=== PATIENT | female | born 1955 | race Caucasian/White ===

== ENCOUNTER → 2016-11-11 | Outpatient (CLI) | payer BC ==
--- NOTE | 2016-11-11 20:08 | Diagnostic Imaging Report ---
Left breast diagnostic mammogram. The current study was also evaluated with a Computer Aided Detection (CAD) system. COMPARISON: 03/30/2016. FINDINGS: The previously seen calcifications along the far posterior aspect of the left MLO view below the nipple line are again noted and appear slightly more prominent. It appears that these calcifications have somewhat confluent coarse appearance at this time which is in favor of benign etiology. Heterogeneously dense parenchyma elsewhere demonstrates no definite change. IMPRESSION: Increased prominence of the calcifications along the far posterior aspect of the left MLO view which appear slightly confluent and coarse and are favored to be benign. Continued follow-up with another six-month mammogram when the patient is due for her bilateral exam is recommended. ACR BI-RADS Category 3: Probably benign findings. Result letter will be mailed to the patient. Note: At least 10% of breast cancer is not imaged by mammography. Dictated by: Dictated on workstation # [id number]
== END ==
LOC: RAD 08:21
PROVIDERS: ATTEND Family Medicine
DX: R92.8 Other abnormal and inconclusive findings on diagnostic imaging of breast (principal)

== ENCOUNTER → 2017-05-02 | Outpatient (CLI) | payer BC ==
--- NOTE | 2017-05-02 09:50 | Diagnostic Imaging Report ---
Bilateral diagnostic mammogram with tomography. CAD is utilized. COMPARISON: 11/11/2016. INDICATION: Followup calcifications in the left breast. FINDINGS: The breasts are composed of scattered fibroglandular densities. Calcifications in the far posterior aspect of the left MLO projection are again noted and demonstrate slight heterogeneity. They are slightly increased from previous exam. They are not defined on the CC projection and appear to be closer to the lateral aspect based on the tomographic views. No definite associated mass. There are stable findings seen in the right breast. IMPRESSION: Slightly increased indeterminate calcifications in the far posterior aspect of the left breast seen only on the left MLO view. Stereotactic biopsy is recommended. ACR BI-RADS Category 4A: Low suspicion of malignancy. Result letter will be mailed to the patient. Note: At least 10% of breast cancer is not imaged by mammography. Report was stat faxed to office of SUNITA Yepez, @ 9:47 AM/keith. Dictated by: Dictated on workstation # [id number]
== END ==
LOC: RAD 08:20
PROVIDERS: ATTEND Nurse Practitioner Family
DX: R92.1 Mammographic calcification found on diagnostic imaging of breast (principal)
CPT/HCPCS: 77066

== ENCOUNTER 2017-11-16 21:02 | Outpatient (CLI) | payer BC | END 2017-11-17 06:05 | disposition home or self-care (01) | LOC: SLEEP 21:02 | PROVIDERS: ATTEND Internal Medicine Cardiovascular Disease | DX: G47.33 Obstructive sleep apnea (adult) (pediatric) (principal) | CPT/HCPCS: 95811 ==

== ENCOUNTER → 2017-12-02 | Outpatient (CLI) | payer BC ==
[~2017-12-02] MED LIST: BACL10TA PO; BUDE10.22 INH; CHOL5000 PO; CYAN10006 PO; CYAN25006 SL; FLUT9.9S NS; HYDR25TA4 PO; L.AC1CAP6 PO; LEVO150T6 PO; LORA10TA7 PO; MAGN400T39 PO; MONT10TA24 PO; MULT-35 PO; OMEG-154 PO; PANT40TA3 PO; PITA2TAB2 PO; PREG50CA2 PO; TOPI50TA13 PO
== END ==
LOC: CARD 10:03
PROVIDERS: ATTEND Internal Medicine Cardiovascular Disease
DX: I25.10 Atherosclerotic heart disease of native coronary artery without angina pectoris (principal); I34.0 Nonrheumatic mitral (valve) insufficiency; I07.1 Rheumatic tricuspid insufficiency; Z72.0 Tobacco use; E66.01 Morbid (severe) obesity due to excess calories
CPT/HCPCS: 93306

== ENCOUNTER 2017-12-21 03:55 | Observation (INO) | payer BC ==
[~2017-12-21] VITALS: Ht 162.6 cm; Wt 124.3 kg
[2017-12-21] VITALS (23 sets, daily range): BP systolic 119–158; BP diastolic 72–91
--- OUTSIDE RECORDS SUMMARY | 2017-12-21 04:01 | XMS REPORT | Continuity of Care Document ---
Author Author [facility] Organization [facility] Address Unknown Phone Unavailable Allergies Active Description Code Type Severity Reaction Onset Reported/Identified Relationship to Patient Clinical Status Yes aspirin [id number] Drug Allergy Unknown N/A 08/27/2015 Medications There is no data. Problems Date Dx Coded Attending Type Code Diagnosis Diagnosed By 06/02/1419 FAVIO ERICKSON Ot A09 INFECTIOUS GASTROENTERITIS AND COLITIS, 06/18/2014 HEIDE PAT, KARMEN Malave Ot V43.65 06/18/2014 HEIDE PAT, KARMEN Malave Ot V54.81 06/18/2014 HEIDE PAT, KARMEN Malave Ot V58.61 01/06/2015 HEIDE PAT, KARMEN Malave Ot V58.61 01/06/2015 HEIDE PAT, KARMEN Malave Ot V58.83 01/06/2015 HEIDE PAT, KARMEN Malave Ot V58.61 01/06/2015 HEIDE PAT, KARMEN Malave Ot V58.83 01/06/2015 HEIDE PAT, KARMEN Malave Ot V43.65 01/06/2015 HEIDE PAT, KARMEN Malave Ot V54.81 01/06/2015 HEIDE PAT, KARMEN Malave Ot V58.61 01/23/2015 DANIEL PAT, ERIS Ball Ot V76.12 09/11/2015 FAVIO ERICKSON Ot R06.00 09/11/2015 FAVIO ERICKSON PSYCHIATRIC SOCIAL WORKER SUPERVISOR Ot R07.9 09/11/2015 FAVIO ERICKSONP Ot Z82.49 03/30/2016 KARMEN JAEGER MD Ot V58.61 ANTICOAGULANTS,LT,CURRENT USE 03/30/2016 KARMEN JAEGER MD Ot V58.83 ENCOUNTER FOR THERAPEUTIC DRUG MONITORIN 03/30/2016 KARMEN JAEGER MD Ot V58.61 ANTICOAGULANTS,LT,CURRENT USE 03/30/2016 KARMEN JAEGER MD Ot V58.83 ENCOUNTER FOR THERAPEUTIC DRUG MONITORIN 03/30/2016 KARMEN JAEGER MD Ot V43.65 KNEE JOINT REPLACEMENT STATUS 03/30/2016 KARMEN JAEGER MD Ot V54.81 AFTERCARE FOLLOWING JOINT REPLACEMENT 03/30/2016 KARMEN JAEGER MD Ot V58.61 ANTICOAGULANTS,LT,CURRENT USE 03/30/2016 ERIS SANCHEZ MD, Ot V76.12 OTH SCREEN MAMMO-MALIGN NEOPLASM OF [place] 03/30/2016 FAVIO ERICKSON PSYCHIATRIC SOCIAL WORKER SUPERVISOR Ot R06.00 DYSPNEA, UNSPECIFIED 03/30/2016 FAVIO ERICKSON PSYCHIATRIC SOCIAL WORKER SUPERVISOR Ot R07.9 CHEST PAIN, UNSPECIFIED 03/30/2016 FAVIO ERICKSON PSYCHIATRIC SOCIAL WORKER SUPERVISOR Ot Z82.49 FAMILY HX OF ISCHEM HEART DIS AND OTH DI 03/31/2016 FAVIO ERICKSON PSYCHIATRIC SOCIAL WORKER SUPERVISOR Ot Z12.31 ENCNTR SCREEN MAMMOGRAM FOR MALIGNANT NE 04/01/2016 FAVIO ERICKSON PSYCHIATRIC SOCIAL WORKER SUPERVISOR Ot R19.7 DIARRHEA, UNSPECIFIED 04/05/2016 FAVIO ERICKSON PSYCHIATRIC SOCIAL WORKER SUPERVISOR Ot Z12.31 ENCNTR SCREEN MAMMOGRAM FOR MALIGNANT NE 04/14/2016 FAVIO ERICKSON PSYCHIATRIC SOCIAL WORKER SUPERVISOR Ot R92.2 INCONCLUSIVE MAMMOGRAM 04/14/2016 FAVIO ERICKSON PSYCHIATRIC SOCIAL WORKER SUPERVISOR Ot R92.8 OTH ABN AND INCONCLUSIVE FINDINGS ON DX 04/14/2016 FAVIO ERICKSON PSYCHIATRIC SOCIAL WORKER SUPERVISOR Ot Z12.31 ENCNTR SCREEN MAMMOGRAM FOR MALIGNANT NE 04/14/2016 FAVIO ERICKSON PSYCHIATRIC SOCIAL WORKER SUPERVISOR Ot R19.7 DIARRHEA, UNSPECIFIED 04/21/2016 FAVIO ERICKSON PSYCHIATRIC SOCIAL WORKER SUPERVISOR Ot R92.2 INCONCLUSIVE MAMMOGRAM 04/21/2016 FAVIO ERICKSON PSYCHIATRIC SOCIAL WORKER SUPERVISOR Ot R92.8 OTH ABN AND INCONCLUSIVE FINDINGS ON DX 04/21/2016 KARMEN JAEGER MD Ot V58.61 ANTICOAGULANTS,LT,CURRENT USE 04/21/2016 KARMEN JAEGER MD Ot V58.83 ENCOUNTER FOR THERAPEUTIC DRUG MONITORIN 04/21/2016 KARMEN JAEGER MD Ot V58.61 ANTICOAGULANTS,LT,CURRENT USE 04/21/2016 KARMEN JAEGER MD Ot V58.83 ENCOUNTER FOR THERAPEUTIC DRUG MONITORIN 04/21/2016 KARMEN JAEGER MD Ot V43.65 KNEE JOINT REPLACEMENT STATUS 04/21/2016 KARMEN JAEGER MD Ot V54.81 AFTERCARE FOLLOWING JOINT REPLACEMENT 04/21/2016 KARMEN JAEGER MD Ot V58.61 ANTICOAGULANTS,LT,CURRENT USE 04/21/2016 ERIS SANCHEZ MD Ot V76.12 OTH SCREEN MAMMO-MALIGN NEOPLASM OF [place] 04/21/2016 FAVIO ERICKSON PSYCHIATRIC SOCIAL WORKER SUPERVISOR Ot R06.00 DYSPNEA, UNSPECIFIED 04/21/2016 FAVIO ERICKSON PSYCHIATRIC SOCIAL WORKER SUPERVISOR Ot R07.9 CHEST PAIN, UNSPECIFIED 04/21/2016 FAVIO ERICKSON PSYCHIATRIC SOCIAL WORKER SUPERVISOR Ot Z82.49 FAMILY HX OF ISCHEM HEART DIS AND OTH DI 04/21/2016 FAVIO ERICKSON PSYCHIATRIC SOCIAL WORKER SUPERVISOR Ot Z12.31 ENCNTR SCREEN MAMMOGRAM FOR MALIGNANT NE 04/21/2016 FAVIO ERICKSON PSYCHIATRIC SOCIAL WORKER SUPERVISOR Ot R19.7 DIARRHEA, UNSPECIFIED 04/21/2016 FAVIO ERICKSON PSYCHIATRIC SOCIAL WORKER SUPERVISOR Ot R92.2 INCONCLUSIVE MAMMOGRAM 04/21/2016 FAVIO ERICKSON PSYCHIATRIC SOCIAL WORKER SUPERVISOR Ot R92.8 OTH ABN AND INCONCLUSIVE FINDINGS ON DX 04/21/2016 FAVIO ERICKSON PSYCHIATRIC SOCIAL WORKER SUPERVISOR Ot A09 INFECTIOUS GASTROENTERITIS AND COLITIS, 04/22/2016 HEIDE PAT, KARMEN Malave Ot V58.61 ANTICOAGULANTS,LT,CURRENT USE 04/22/2016 KARMEN JAEGER MD Ot V58.83 ENCOUNTER FOR THERAPEUTIC DRUG MONITORIN 04/22/2016 KARMEN JAEGRE MD Ot V58.61 ANTICOAGULANTS,LT,CURRENT USE 04/22/2016 KARMEN JAEGER MD T Ot V58.83 ENCOUNTER FOR THERAPEUTIC DRUG MONITORIN 04/22/2016 KARMEN JAEGER MD Ot V43.65 KNEE JOINT REPLACEMENT STATUS 04/22/2016 KARMEN JAEGER MD Ot V54.81 AFTERCARE FOLLOWING JOINT REPLACEMENT 04/22/2016 KARMEN JAEGER MD Ot V58.61 ANTICOAGULANTS,LT,CURRENT USE 04/22/2016 DANIEL PAT, ERIS Ball Ot V76.12 OTH SCREEN MAMMO-MALIGN NEOPLASM OF [place] 04/22/2016 FAVIO ERICKSON PSYCHIATRIC SOCIAL WORKER SUPERVISOR Ot R06.00 DYSPNEA, UNSPECIFIED 04/22/2016 FAVIO ERICKSON PSYCHIATRIC SOCIAL WORKER SUPERVISOR Ot R07.9 CHEST PAIN, UNSPECIFIED 04/22/2016 FAVIO ERICKSON PSYCHIATRIC SOCIAL WORKER SUPERVISOR Ot Z82.49 FAMILY HX OF ISCHEM HEART DIS AND OTH DI 04/22/2016 FAVIO ERICKSON PSYCHIATRIC SOCIAL WORKER SUPERVISOR Ot Z12.31 ENCNTR SCREEN MAMMOGRAM FOR MALIGNANT NE 04/22/2016 FAVIO ERICKSON PSYCHIATRIC SOCIAL WORKER SUPERVISOR Ot R19.7 DIARRHEA, UNSPECIFIED 04/22/2016 FAVIO ERICKSON PSYCHIATRIC SOCIAL WORKER SUPERVISOR Ot R92.2 INCONCLUSIVE MAMMOGRAM 04/22/2016 FAVIO ERICKSONP Ot R92.8 OTH ABN AND INCONCLUSIVE FINDINGS ON DX 04/22/2016 FAVIO ERICKSON PSYCHIATRIC SOCIAL WORKER SUPERVISOR Ot A09 INFECTIOUS GASTROENTERITIS AND COLITIS, 04/22/2016 FAVIO ERICKSON PSYCHIATRIC SOCIAL WORKER SUPERVISOR Ot A09 INFECTIOUS GASTROENTERITIS AND COLITIS, 04/22/2016 FAVIO ERICKSONP Ot R19.7 DIARRHEA, UNSPECIFIED 04/22/2016 FAVIO ERICKSON PSYCHIATRIC SOCIAL WORKER SUPERVISOR Ot A09 INFECTIOUS GASTROENTERITIS AND COLITIS, 11/17/2016 AV PAT, LLOYD Sol Ot R92.8 OTH ABN AND INCONCLUSIVE FINDINGS ON DX 11/29/2016 AV PAT, LLOYD Sol Ot R92.8 OTH ABN AND INCONCLUSIVE FINDINGS ON DX 05/11/2017 HEIDE PAT, KARMEN Malave Ot V58.61 ANTICOAGULANTS,LT,CURRENT USE 05/11/2017 KARMEN JAEGER MD Ot V58.83 ENCOUNTER FOR THERAPEUTIC DRUG MONITORIN 05/11/2017 KARMEN JAEGER MD Ot V58.61 ANTICOAGULANTS,LT,CURRENT USE 05/11/2017 KARMEN JAEGER MD Ot V58.83 ENCOUNTER FOR THERAPEUTIC DRUG MONITORIN 05/11/2017 KARMEN JAEGER MD Ot V43.65 KNEE JOINT REPLACEMENT STATUS 05/11/2017 KARMEN JAEGER MD Ot V54.81 AFTERCARE FOLLOWING JOINT REPLACEMENT 05/11/2017 KARMEN JAEGER MD Ot V58.61 ANTICOAGULANTS,LT,CURRENT USE 05/11/2017 DANIEL PAT, ERIS Ball Ot V76.12 OTH SCREEN MAMMO-MALIGN NEOPLASM OF [place] 05/11/2017 FAVIO ERICKSON PSYCHIATRIC SOCIAL WORKER SUPERVISOR Ot R06.00 DYSPNEA, UNSPECIFIED 05/11/2017 FAVIO ERICKSON PSYCHIATRIC SOCIAL WORKER SUPERVISOR Ot R07.9 CHEST PAIN, UNSPECIFIED 05/11/2017 FAVIO ERICKSON PSYCHIATRIC SOCIAL WORKER SUPERVISOR Ot Z82.49 FAMILY HX OF ISCHEM HEART DIS AND OTH DI 05/11/2017 FAVIO ERICKSON PSYCHIATRIC SOCIAL WORKER SUPERVISOR Ot Z12.31 ENCNTR SCREEN MAMMOGRAM FOR MALIGNANT NE 05/11/2017 FAVIO ERICKSON PSYCHIATRIC SOCIAL WORKER SUPERVISOR Ot R92.2 INCONCLUSIVE MAMMOGRAM 05/11/2017 FAVIO ERICKSON Ot R92.8 OTH ABN AND INCONCLUSIVE FINDINGS ON DX 05/11/2017 AV PAT, LLOYD Sol Ot R92.8 OTH ABN AND INCONCLUSIVE FINDINGS ON DX 05/11/2017 FAVIO ERICKSON PSYCHIATRIC SOCIAL WORKER SUPERVISOR Ot R92.1 MAMMOGRAPHIC CALCIFCN FOUND ON DIAGNOSTI 05/11/2017 FAVIO ERICKSON PSYCHIATRIC SOCIAL WORKER SUPERVISOR Ot R92.1 MAMMOGRAPHIC CALCIFCN FOUND ON DIAGNOSTI 05/12/2017 FAVIO ERICKSON PSYCHIATRIC SOCIAL WORKER SUPERVISOR Ot R92.1 MAMMOGRAPHIC CALCIFCN FOUND ON DIAGNOSTI 05/25/2017 FAVIO ERICKSON PSYCHIATRIC SOCIAL WORKER SUPERVISOR Ot R92.1 MAMMOGRAPHIC CALCIFCN FOUND ON DIAGNOSTI 05/25/2017 FAVIO ERICKSON PSYCHIATRIC SOCIAL WORKER SUPERVISOR Ot R92.1 MAMMOGRAPHIC CALCIFCN FOUND ON DIAGNOSTI 11/09/2017 HEIDE PAT, KARMEN Malave Ot V58.61 ANTICOAGULANTS,LT,CURRENT USE 11/09/2017 KARMEN JAEGER MD Ot V58.83 ENCOUNTER FOR THERAPEUTIC DRUG MONITORIN 11/09/2017 KRAMEN JAEGER MD Ot V58.61 ANTICOAGULANTS,LT,CURRENT USE 11/09/2017 KARMEN JAEGER MD Ot V58.83 ENCOUNTER FOR THERAPEUTIC DRUG MONITORIN 11/09/2017 KARMEN JAEGER MD Ot V43.65 KNEE JOINT REPLACEMENT STATUS 11/09/2017 HEIDE PAT, KARMEN Malave Ot V54.81 AFTERCARE FOLLOWING JOINT REPLACEMENT 11/09/2017 HEIDE PAT, KARMEN Malave Ot V58.61 ANTICOAGULANTS,LT,CURRENT USE 11/09/2017 DANIEL PAT, ERIS Ball Ot V76.12 OTH SCREEN MAMMO-MALIGN NEOPLASM OF [place]KH[place] 11/09/2017 FAVIO ERICKSON PSYCHIATRIC SOCIAL WORKER SUPERVISOR Ot R06.00 DYSPNEA, UNSPECIFIED 11/09/2017 FAVIO ERICKSON PSYCHIATRIC SOCIAL WORKER SUPERVISOR Ot R07.9 CHEST PAIN, UNSPECIFIED 11/09/2017 FAVIO ERICKSON PSYCHIATRIC SOCIAL WORKER SUPERVISOR Ot Z82.49 FAMILY HX OF ISCHEM HEART DIS AND OTH DI 11/09/2017 FAVIO ERICKSON PSYCHIATRIC SOCIAL WORKER SUPERVISOR Ot Z12.31 ENCNTR SCREEN MAMMOGRAM FOR MALIGNANT NE 11/09/2017 FAVIO ERICKSON PSYCHIATRIC SOCIAL WORKER SUPERVISOR Ot R92.2 INCONCLUSIVE MAMMOGRAM 11/09/2017 FAVIO ERICKSON PSYCHIATRIC SOCIAL WORKER SUPERVISOR Ot R92.8 OTH ABN AND INCONCLUSIVE FINDINGS ON DX 11/09/2017 AV PAT, LLOYD Sol Ot R92.8 OTH ABN AND INCONCLUSIVE FINDINGS ON DX 11/09/2017 FAVIO ERICKSON PSYCHIATRIC SOCIAL WORKER SUPERVISOR Ot R92.1 MAMMOGRAPHIC CALCIFCN FOUND ON DIAGNOSTI 11/09/2017 FAVIO ERICKSON PSYCHIATRIC SOCIAL WORKER SUPERVISOR Ot R92.1 MAMMOGRAPHIC CALCIFCN FOUND ON DIAGNOSTI 11/14/2017 FAVIO ERICKSON PSYCHIATRIC SOCIAL WORKER SUPERVISOR Ot E04.2 NONTOXIC MULTINODULAR GOITER 11/14/2017 FAVIO ERICKSON SUNITA Ot Z53.9 PROCEDURE AND TREATMENT NOT CARRIED OUT, 11/17/2017 JAZMÍN NG MD Ot G47.33 OBSTRUCTIVE SLEEP APNEA (ADULT) (PEDIATR 11/17/2017 JAZMÍN NG MD, Ot G47.33 OBSTRUCTIVE SLEEP APNEA (ADULT) (PEDIATR 12/05/2017 JAZMÍN NG MD Ot E66.01 MORBID (SEVERE) OBESITY DUE TO EXCESS CA 12/05/2017 JAZMÍN NG MD Ot I07.1 RHEUMATIC TRICUSPID INSUFFICIENCY 12/05/2017 JAZMÍN NG MD Ot I25.10 ATHSCL HEART DISEASE OF [place] CORONARY 12/05/2017 JAZMÍN NG MD Ot I34.0 NONRHEUMATIC MITRAL (VALVE) INSUFFICIENC 12/05/2017 JAZMÍN NG MD Ot Z72.0 TOBACCO USE 12/15/2017 JAZMÍN NG MD Ot E66.01 MORBID (SEVERE) OBESITY DUE TO EXCESS CA 12/15/2017 JAZMÍN NG MD Ot I07.1 RHEUMATIC TRICUSPID INSUFFICIENCY 12/15/2017 JAZMÍN NG MD Ot I25.10 ATHSCL HEART DISEASE OF [place] CORONARY 12/15/2017 JAZMÍN NG MD Ot I34.0 NONRHEUMATIC MITRAL (VALVE) INSUFFICIENC 12/15/2017 JAZMÍN NG MD, Ot Z72.0 TOBACCO USE Procedures There is no data. Results Test Result Range Stool occult blood screen - 04/01/16 17:00 Stool gastrointestinal hemoglobin detection POSITIVE NEGATIVE Stool leukocytes detection by light microscopy - 04/01/16 17:00 FECAL WBC RESULTS FEW WBC'S OBSERVED ON DIRECT SMEAR NRG FECAL NOTE FECAL LEUKOCYTES MAY BE INTERMITTENTLY PRESENT OR NRG FECAL NOTE UNEVENLY DISTRIBUTED IN STOOL SPECIMENS, AND WBC NRG FECAL NOTE MORPHOLOGY DEGRADES DURING TRANSPORT NRG FECAL NOTE NOTE: NRG Clostridium difficile detection - 04/01/16 17:00 C DIFF MOLECULAR RESULT Positive for toxigenic C diff by DNA amplification NRG CALL POSITIVES (F1 HELP) CALLED TO PATRICIA/OFFICE NURSE AT 1130, 9-30 /KD NRG Stool bacteria identification by culture - 04/01/16 17:00 Stool bacteria identification by culture N2 NRG Ova and parasites - 04/01/16 17:00 DATE OF REF LAB REPORT 04-16-2014 NRG OTP NEGATIVE RESULT PARASITES NOT FOUND NRG C DIFFICILE AG + TOXIN A/B. - 04/22/16 13:30 RESULTS NEGATIVE FOR ANTIGEN AND TOXIN A/B NRG Encounters ACCT No. Visit Date/Time Discharge Status Pt. Type Provider Facility Loc./Unit Complaint [id number] 12/02/2017 10:03:00 12/02/2017 23:59:59 CLS Outpatient JAZMÍN NG MD [facility] CARD I25.10 CAD [id number] 11/16/2017 21:02:00 11/17/2017 06:05:00 DIS Outpatient JAZMÍN NG MD [facility] SLEEP JACOBO G47.33 [id number] 11/11/2017 11:30:00 11/11/2017 23:59:59 CLS Preadmit FAVIO ERICKSON PSYCHIATRIC SOCIAL WORKER SUPERVISOR [facility] CARD [id number] 11/10/2017 10:45:00 11/10/2017 23:59:59 CLS Outpatient FAVIO ERICKSON PSYCHIATRIC SOCIAL WORKER SUPERVISOR [facility] RAD MULTIPLE THYROID NODULES [id number] 05/11/2017 10:27:00 05/11/2017 23:59:59 CLS Outpatient FAVIO ERICKSON PSYCHIATRIC SOCIAL WORKER SUPERVISOR [facility] RAD ABN MAMMO [id number] 05/02/2017 08:20:00 05/02/2017 23:59:59 CLS Outpatient FAVIO ERICKSON PSYCHIATRIC SOCIAL WORKER SUPERVISOR [facility] RAD ABNORMAL MAMMO R92.8 [id number] 04/22/2017 07:53:00 04/22/2017 23:59:59 CLS Preadmit FAVIO ERICKSON PSYCHIATRIC SOCIAL WORKER SUPERVISOR [facility] RAD SCREENING [id number] 11/11/2016 08:21:00 11/11/2016 23:59:59 CLS Outpatient LLOYD LEY MD [facility] RAD R92.8 ABNORMAL MAMMO [id number] 04/22/2016 14:18:00 04/22/2016 14:20:00 DIS Outpatient FAVIO ERICKSON PSYCHIATRIC SOCIAL WORKER SUPERVISOR [facility] LAB A09 [id number] 03/30/2016 13:45:00 04/22/2016 14:20:00 DIS Outpatient FAVIO ERICKSON [facility] LAB DIARRHEA [id number] 04/09/2016 07:49:00 04/09/2016 23:59:59 CLS Outpatient FAVIO ERICKSON [facility] RAD OTHER ABNORMAL INCONCLUSIVE FINDINGS [id number] 03/30/2016 13:53:00 03/30/2016 23:59:59 CLS Outpatient FAVIO ERICKSON [facility] RAD SCREENING [id number] 08/27/2015 07:45:00 08/27/2015 23:59:59 CLS Outpatient FAVIO ERICKSON [facility] CARD CHEST PAIN,DYSPNEA, FAMILY HX OF ISCHEMIC HEART DIS [id number] 01/06/2015 11:07:00 01/06/2015 23:59:59 CLS Outpatient ERIS SANCHEZ MD [facility] RAD SCREENING [id number] 12/24/2013 13:00:00 12/24/2013 23:59:59 CLS Outpatient KARMEN JAEGER MD [facility] TKR, ANTICOAG THERAPY [id number] 12/20/2013 11:55:00 12/20/2013 23:59:59 CLS Outpatient KARMEN JAEGER MD [facility] ANTICOAG THERAPY [id number] 12/17/2013 11:35:00 12/17/2013 23:59:59 CLS Outpatient KARMEN JAEGER MD [facility] ANTI COG THERAPY
[2017-12-21] MEDS ORDERED: BUDE10.22 INH (04:09)
[2017-12-21] MEDS ORDERED: MONT10TA24 PO (04:09)
[2017-12-21] MEDS ORDERED: BACL10TA PO ×2 (04:09→08:54)
[2017-12-21] MEDS ORDERED: LEVO150T6 PO (04:09)
[2017-12-21] MEDS ORDERED: HYDR25TA4 PO (04:09)
[2017-12-21] MEDS ORDERED: PITA2TAB2 PO (04:09)
[2017-12-21] MEDS ORDERED: PREG50CA2 PO (04:09)
[2017-12-21] MEDS ORDERED: TOPI50TA13 PO (04:09)
[2017-12-21] MEDS ORDERED: PANT40TA3 PO (04:09)
[2017-12-21 04:18] LABS: BASOPHILS % (AUTO) 0 % (0-10); EOSINOPHILS # (AUTO) 0.3 10^3/uL (0.0-0.3); EOSINOPHILS % (AUTO) 3 % (0-10); HEMATOCRIT 38 % (35-52); HEMOGLOBIN 12.8 G/DL (11.5-16.0); LYMPHOCYTES # (AUTO) 3.7 X 10^3 (1.0-4.0); LYMPHOCYTES % (AUTO) 37 % (12-44); MEAN CORPUSCULAR HEMOGLOBIN 32 PG (25-34); MEAN CORPUSCULAR HGB CONC 34 G/DL (32-36); MEAN CORPUSCULAR VOLUME 94 FL (80-99); MEAN PLATELET VOLUME 11.8 FL (7.4-10.4); MONOCYTES # (AUTO) 0.8 X 10^3 (0.0-1.0); MONOCYTES % (AUTO) 8 % (0-12); NEUTROPHILS # (AUTO) 5.1 X 10^3 (1.8-7.8); NEUTROPHILS % (AUTO) 52 % (42-75); PLATELET COUNT 211 10^3/uL (130-400); RED BLOOD COUNT 4.05 10^6/uL (4.35-5.85); RED CELL DISTRIBUTION WIDTH 14.6 % (10.0-14.5)
--- NOTE | 2017-12-21 04:22 | ED Chest Pain ---
General Chief Complaint: Chest Pain Stated Complaint: CP Nursing Triage Note: patient reports R sided chest pain radiating to back that woke her up at 0230. 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 NG--STATES SHE SEES HIM ONCE A YEAR, BUT DOES NOT KNOW WHY SHE SEES HIM.. STATES SHE HAS NOT HAD ANY HEART PROBLEMS. HAD A ROUTINE ECHOCARDIOGRAM 12/02/17--WAS NORMAL WITH EF OF 55-65% Allergies and Home Medications Allergies Coded Allergies: NSAIDS (Non-Steroidal Anti-Inflamma (Verified Allergy, Severe, 12/21/17) aspirin (Unverified Allergy, Unknown, 12/21/17) NEVER HAD IT DUE TO NSAID ALLERGY Patient Home Medication List Home Medication List Reviewed: Yes Review of Systems Constitutional: no symptoms reported EENTM: No Symptoms Reported Respiratory: See HPI Cardiovascular: See HPI Gastrointestinal: No Symptoms Reported Genitourinary: No Symptoms Reported Musculoskeletal: no symptoms reported Skin: no symptoms reported Psychiatric/Neurological: No Symptoms Reported Endocrine: No Symptoms Reported Hematologic/Lymphatic: No Symptoms Reported Past Dcaqxkx-Vxnayq-Lktvkg Hx Patient Social History Alcohol Use: Denies Use Recreational Drug Use: No Smoking Status: Former Smoker (1 07/05 PPD, QUIT 12/2016) Type Used: Cigarettes Recent Foreign Travel: No Contact w/Someone Who Travel: No Recent Infectious Disease Expo: No Past Medical History Surgeries: Yes (HYST/BSO; RIGHT SHOULDER SCOPE X 2; RIGHT KNEE SCOPE; LEFT KNEE REPLACEMENT) Appendectomy, Gallbladder, Hysterectomy, Joint Replacement, Orthopedic Respiratory: Yes Asthma, COPD Cardiac: Yes Chronic Edema/Swelling, High Cholesterol, Hypertension Neurological: Yes Headaches /Migraines 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 History: Hysterectomy, Menopausal Genitourinary: No Gastrointestinal: Yes Gastroesophageal Reflux Musculoskeletal: Yes (CHRONIC GENERALIZED PAIN ) Arthritis, Chronic Back Pain Endocrine: Yes (OBESE) Hypothyroidsim HEENT: No Cancer: No Psychosocial: No Integumentary: No Blood Disorders: No Physical Exam Vital Signs Vital Signs - First Documented 12/21/17 12/21/17 04:00 04:11 Temp 97.8 Pulse 70 Resp 13 B/P (MAP) 147/74 (98) Pulse Ox 93 O2 Delivery Room Air Capillary Refill : Less Than 3 Seconds General Appearance: No Apparent Distress, Obese Neck: Normal Inspection Respiratory: Chest Non Tender, Normal Breath Sounds, No Accessory Muscle Use, No Respiratory Distress Cardiovascular: Regular Rate, Rhythm, No JVD, No Murmur, Normal Peripheral Pulses Gastrointestinal: Non Tender, Soft Extremity: Normal Capillary Refill, Normal Range of Motion, Non Tender, No Calf Tenderness, Pedal Edema (TRACE BILATERALLY) Neurologic/Psychiatric: Alert, Oriented x3, No Motor/Sensory Deficits, Normal Mood/Affect, appliance servicer II-XII Norm as Tested Skin: Normal Color, Warm/Dry Progress/Results/Core Measures Results/Orders Lab Results Laboratory Tests Test 12/21/17 04:05 Range/Units White Blood Count 10.0 4.3-11.0 10^3/uL Red Blood Count 4.05 L 4.35-5.85 10^6/uL Hemoglobin 12.8 11.5-16.0 G/DL Hematocrit 38 35-52 % Mean Corpuscular Volume 94 80-99 FL Mean Corpuscular Hemoglobin 32 25-34 PG Mean Corpuscular Hemoglobin Concent 34 32-36 G/DL Red Cell Distribution Width 14.6 H 10.0-14.5 % Platelet Count 211 130-400 10^3/uL Mean Platelet Volume 11.8 H 7.4-10.4 FL Neutrophils (%) (Auto) 52 42-75 % Lymphocytes (%) (Auto) 37 12-44 % Monocytes (%) (Auto) 8 0-12 % Eosinophils (%) (Auto) 3 0-10 % Basophils (%) (Auto) 0 0-10 % Neutrophils # (Auto) 5.1 1.8-7.8 X 10^3 Lymphocytes # (Auto) 3.7 1.0-4.0 X 10^3 Monocytes # (Auto) 0.8 0.0-1.0 X 10^3 Eosinophils # (Auto) 0.3 0.0-0.3 10^3/uL Basophils # (Auto) 0.0 0.0-0.1 10^3/uL Prothrombin Time 12.9 12.2-14.7 SEC INR Comment 1.0 0.8-1.4 Activated Partial Thromboplast Time 28 24-35 SEC Sodium Level 143 135-145 MMOL/L Potassium Level 3.2 L 3.6-5.0 MMOL/L Chloride Level 107 98-107 MMOL/L Carbon Dioxide Level 21 21-32 MMOL/L Anion Gap 15 H 5-14 MMOL/L Blood Urea Nitrogen 15 7-18 MG/DL Creatinine 0.76 0.60-1.30 MG/DL Estimat Glomerular Filtration Rate > 60 BUN/Creatinine Ratio 20 Glucose Level 113 H 70-105 MG/DL Calcium Level 9.8 8.5-10.1 MG/DL Magnesium Level 2.2 1.8-2.4 MG/DL Total Bilirubin 0.4 0.1-1.0 MG/DL Aspartate Amino Transf (AST/SGOT) 25 5-34 U/L Alanine Aminotransferase (ALT/SGPT) 25 0-55 U/L Alkaline Phosphatase 94 40-136 U/L Total Creatine Kinase 45 29-168 U/L Creatine Kinase MB 0.6 <6.6 NG/ML Troponin I < 0.30 <0.30 NG/ML B-Type Natriuretic Peptide 36.1 <100.0 PG/ML Total Protein 7.2 6.4-8.2 GM/DL Albumin 4.2 3.2-4.5 GM/DL Amylase Level 36 25-125 U/L Lipase 17 8-78 U/L My Orders Orders - PUSHPA MENDEZ DO Amylase (12/21/17 04:02) Cbc With Automated Diff (12/21/17 04:02) Comprehensive Metabolic Panel (12/21/17 04:02) Creatine Kinase (12/21/17 04:02) Creatine Kinase Mb (12/21/17 04:02) Lipase (12/21/17 04:02) Partial Thromboplastin Time (12/21/17 04:02) Protime With Inr (12/21/17 04:02) Troponin I (12/21/17 04:02) Chest 1 View, Ap/Pa Only (12/21/17 04:02) O2 (12/21/17 04:02) Ekg Tracing (12/21/17 04:02) BNP (12/21/17 04:02) Monitor-Rhythm Ecg Trace Only (12/21/17 04:02) Magnesium (12/21/17 04:02) Potassium Chloride (Tablet) (Klor Con Ta (12/21/17 05:00) Vital Signs/I&O 12/21/17 12/21/17 04:00 04:11 Temp 97.8 Pulse 70 Resp 13 B/P (MAP) 147/74 (98) Pulse Ox 93 O2 Delivery Room Air Room Air Blood Pressure Mean: 98 Progress Progress Note : Progress Note NO PAIN OR ANY OTHER SYMPTOMS DURING ER STAY Initial ECG Impression Date: Dec 21, 2017 Initial ECG Impression Time: 04:01 Initial ECG Rate: 86 Initial ECG Rhythm: Normal Sinus Initial ECG Comparisson: No Previous ECG Available Diagnostic Imaging Comments CXR--NO ACUTE PROCESS, PENDING RADIOLOGIST REVIEW Reviewed: Reviewed by Me Departure Communication (Admissions) [id number]--SPOKE WITH DR. OLIVER, ACCEPTS PT FOR ADMIT. Impression Primary Impression: Chest pain Disposition: ADMITTED INPATIENT Condition: Stable Admissions Decision to Admit Reason: Admit from ER (General) Decision to Admit/Date: Dec 21, 2017 Time/Decision to Admit Time: 05:00 Departure-Patient Inst. Referrals: DENISE RUVLACABA DO (PCP) Primary Care Physician FAVIO ERICKSON (Family) Primary Care Physician PUSHPA MENDEZ DO Dec 21, 2017 04:22
[2017-12-21 04:29] LABS: PROTHROMBIN TIME PATIENT 12.9 SEC (12.2-14.7)
[2017-12-21 04:38] LABS: ALANINE AMINOTRANSFERASE 25 U/L (0-55); ALBUMIN 4.2 GM/DL (3.2-4.5); ALKALINE PHOSPHATASE 94 U/L (40-136); AMYLASE 36 U/L (25-125); BILIRUBIN,TOTAL 0.4 MG/DL (0.1-1.0); BUN/CREATININE RATIO 20; CALCIUM 9.8 MG/DL (8.5-10.1); CARBON DIOXIDE 21 MMOL/L (21-32); CHLORIDE 107 MMOL/L (98-107); CREATINE KINASE 45 U/L (29-168); CREATININE SERUM 0.76 MG/DL (0.60-1.30); GFR ESTIMATED > 60; GLUCOSE 113 MG/DL (70-105); LIPASE 17 U/L (8-78); MAGNESIUM 2.2 MG/DL (1.8-2.4); POTASSIUM 3.2 MMOL/L (3.6-5.0); SODIUM 143 MMOL/L (135-145); TOTAL PROTEIN 7.2 GM/DL (6.4-8.2)
[2017-12-21 04:45] LABS: CREATINE KINASE MB 0.6 NG/ML (<6.6)
[2017-12-21] MEDS ORDERED: KCL 10 MEQ TAB (MICRO K) PO ONE (05:00)
--- OUTSIDE RECORDS SUMMARY | 2017-12-21 05:22 | XMS REPORT | Continuity of Care Document ---
Author Author [facility] Organization [facility] Address Unknown Phone Unavailable Allergies Active Description Code Type Severity Reaction Onset Reported/Identified Relationship to Patient Clinical Status Yes aspirin [id number] Drug Allergy Unknown N/A 08/27/2015 Medications There [...] Malave Ot V58.83 01/06/2015 HEIDE PAT, KARMEN aMlave Ot V58.61 01/06/2015 HEIDE PAT, KARMEN Malave Ot V58.83 01/06/2015 HEIDE PAT, KARMEN Malave Ot V43.65 01/06/2015 HEIDE PAT, KARMEN Malave Ot V54.81 01/06/2015 HEIDE PAT, KARMEN Malave Ot V58.61 01/23/2015 DANIEL PAT, ERIS Ball Ot V76.12 09/11/2015 FAVIO ERICKSON Ot R06.00 09/11/2015 FAVIO ERICKSON BUNDLE WRAPPER Ot R07.9 09/11/2015 FAVIO ERICKSONP Ot Z82.49 [...] MAMMO-MALIGN NEOPLASM OF [place] 03/30/2016 FAVIO ERICKSON BUNDLE WRAPPER Ot R06.00 DYSPNEA, UNSPECIFIED 03/30/2016 FAVIO ERICKSON BUNDLE WRAPPER Ot R07.9 CHEST PAIN, UNSPECIFIED 03/30/2016 FAVIO ERICKSON BUNDLE WRAPPER Ot Z82.49 FAMILY HX OF ISCHEM HEART DIS AND OTH DI 03/31/2016 FAVIO ERICKSON BUNDLE WRAPPER Ot Z12.31 ENCNTR SCREEN MAMMOGRAM FOR MALIGNANT NE 04/01/2016 FAVIO ERICKSON BUNDLE WRAPPER Ot R19.7 DIARRHEA, UNSPECIFIED 04/05/2016 FAVIO ERICKSON BUNDLE WRAPPER Ot Z12.31 ENCNTR SCREEN MAMMOGRAM FOR MALIGNANT NE 04/14/2016 FAVIO ERICKSON BUNDLE WRAPPER Ot R92.2 INCONCLUSIVE MAMMOGRAM 04/14/2016 FAVIO ERICKSON BUNDLE WRAPPER Ot R92.8 OTH ABN AND INCONCLUSIVE FINDINGS ON DX 04/14/2016 FAVIO ERICKSON BUNDLE WRAPPER Ot Z12.31 ENCNTR SCREEN MAMMOGRAM FOR MALIGNANT NE 04/14/2016 FAVIO ERICKSON BUNDLE WRAPPER Ot R19.7 DIARRHEA, UNSPECIFIED 04/21/2016 FAVIO ERICKSON BUNDLE WRAPPER Ot R92.2 INCONCLUSIVE MAMMOGRAM 04/21/2016 FAVIO ERICKSON BUNDLE WRAPPER Ot R92.8 OTH ABN AND INCONCLUSIVE FINDINGS [...] MAMMO-MALIGN NEOPLASM OF [place] 04/21/2016 FAVIO ERICKSON BUNDLE WRAPPER Ot R06.00 DYSPNEA, UNSPECIFIED 04/21/2016 FAVIO ERICKSON BUNDLE WRAPPER Ot R07.9 CHEST PAIN, UNSPECIFIED 04/21/2016 FAVIO ERICKSON BUNDLE WRAPPER Ot Z82.49 FAMILY HX OF ISCHEM HEART DIS AND OTH DI 04/21/2016 FAVIO ERICKSON BUNDLE WRAPPER Ot Z12.31 ENCNTR SCREEN MAMMOGRAM FOR MALIGNANT NE 04/21/2016 FAVIO ERICKSON BUNDLE WRAPPER Ot R19.7 DIARRHEA, UNSPECIFIED 04/21/2016 FAVIO ERICKSON BUNDLE WRAPPER Ot R92.2 INCONCLUSIVE MAMMOGRAM 04/21/2016 FAVIO ERICKSON BUNDLE WRAPPER Ot R92.8 OTH ABN AND INCONCLUSIVE FINDINGS ON DX 04/21/2016 FAVIO ERICKSON BUNDLE WRAPPER Ot A09 INFECTIOUS GASTROENTERITIS AND COLITIS, 04/22/2016 HEIDE PAT, KARMEN Malave Ot V58.61 ANTICOAGULANTS,LT,CURRENT USE 04/22/2016 KARMEN JAEGER MD Ot V58.83 ENCOUNTER FOR THERAPEUTIC DRUG MONITORIN 04/22/2016 KARMEN JAEGER MD Ot V58.61 ANTICOAGULANTS,LT,CURRENT USE 04/22/2016 KARMEN JAEGER MD T Ot V58.83 ENCOUNTER FOR THERAPEUTIC DRUG MONITORIN 04/22/2016 KARMEN JAEGER MD Ot V43.65 KNEE JOINT REPLACEMENT STATUS 04/22/2016 KARMEN JAEGER MD Ot V54.81 AFTERCARE FOLLOWING JOINT REPLACEMENT 04/22/2016 KARMEN JAEGER MD Ot V58.61 ANTICOAGULANTS,LT,CURRENT USE 04/22/2016 DANIEL PAT, ERIS Ball Ot V76.12 OTH SCREEN MAMMO-MALIGN NEOPLASM OF [place] 04/22/2016 FAVIO ERICKSON BUNDLE WRAPPER Ot R06.00 DYSPNEA, UNSPECIFIED 04/22/2016 FAVIO ERICKSON BUNDLE WRAPPER Ot R07.9 CHEST PAIN, UNSPECIFIED 04/22/2016 FAVIO ERICKSON BUNDLE WRAPPER Ot Z82.49 FAMILY HX OF ISCHEM HEART DIS AND OTH DI 04/22/2016 FAVIO ERICKSON BUNDLE WRAPPER Ot Z12.31 ENCNTR SCREEN MAMMOGRAM FOR MALIGNANT NE 04/22/2016 FAVIO ERICKSON BUNDLE WRAPPER Ot R19.7 DIARRHEA, UNSPECIFIED 04/22/2016 FAVIO ERICKSON BUNDLE WRAPPER Ot R92.2 INCONCLUSIVE MAMMOGRAM 04/22/2016 FAVIO ERICKSONP Ot R92.8 OTH ABN AND INCONCLUSIVE FINDINGS ON DX 04/22/2016 FAVIO ERICKSON BUNDLE WRAPPER Ot A09 INFECTIOUS GASTROENTERITIS AND COLITIS, 04/22/2016 FAVIO ERICKSON BUNDLE WRAPPER Ot A09 INFECTIOUS GASTROENTERITIS AND COLITIS, 04/22/2016 FAVIO ERICKSONP Ot R19.7 DIARRHEA, UNSPECIFIED 04/22/2016 FAVIO ERICKSON BUNDLE WRAPPER Ot A09 INFECTIOUS GASTROENTERITIS AND COLITIS, 11/17/2016 [...] MAMMO-MALIGN NEOPLASM OF [place] 05/11/2017 FAVIO ERICKSON BUNDLE WRAPPER Ot R06.00 DYSPNEA, UNSPECIFIED 05/11/2017 FAVIO ERICKSON BUNDLE WRAPPER Ot R07.9 CHEST PAIN, UNSPECIFIED 05/11/2017 FAVIO ERICKSON BUNDLE WRAPPER Ot Z82.49 FAMILY HX OF ISCHEM HEART DIS AND OTH DI 05/11/2017 FAVIO ERICKSON BUNDLE WRAPPER Ot Z12.31 ENCNTR SCREEN MAMMOGRAM FOR MALIGNANT NE 05/11/2017 FAVIO ERICKSON BUNDLE WRAPPER Ot R92.2 INCONCLUSIVE MAMMOGRAM 05/11/2017 FAVIO ERICKSON Ot R92.8 OTH ABN AND INCONCLUSIVE FINDINGS ON DX 05/11/2017 AV PAT, LLOYD Sol Ot R92.8 OTH ABN AND INCONCLUSIVE FINDINGS ON DX 05/11/2017 FAVIO ERICKSON BUNDLE WRAPPER Ot R92.1 MAMMOGRAPHIC CALCIFCN FOUND ON DIAGNOSTI 05/11/2017 FAVIO ERICKSON BUNDLE WRAPPER Ot R92.1 MAMMOGRAPHIC CALCIFCN FOUND ON DIAGNOSTI 05/12/2017 FAVIO ERICKSON BUNDLE WRAPPER Ot R92.1 MAMMOGRAPHIC CALCIFCN FOUND ON DIAGNOSTI 05/25/2017 FAVIO ERICKSON BUNDLE WRAPPER Ot R92.1 MAMMOGRAPHIC CALCIFCN FOUND ON DIAGNOSTI 05/25/2017 FAVIO ERICKSON BUNDLE WRAPPER Ot R92.1 MAMMOGRAPHIC CALCIFCN FOUND ON DIAGNOSTI 11/09/2017 HEIDE PAT, KARMEN Malave Ot V58.61 ANTICOAGULANTS,LT,CURRENT USE 11/09/2017 KARMEN JAEGER MD Ot V58.83 ENCOUNTER FOR THERAPEUTIC DRUG MONITORIN 11/09/2017 KARMEN JAEGER MD Ot V58.61 ANTICOAGULANTS,LT,CURRENT USE 11/09/2017 KARMEN JAEGER MD Ot V58.83 ENCOUNTER FOR THERAPEUTIC DRUG MONITORIN 11/09/2017 KARMEN JAEGER MD Ot V43.65 KNEE JOINT REPLACEMENT STATUS 11/09/2017 HEIDE PAT, KARMEN [place] Ot V54.81 AFTERCARE FOLLOWING JOINT REPLACEMENT 11/09/2017 HEIDE PAT, KARMEN Malave Ot V58.61 ANTICOAGULANTS,LT,CURRENT USE 11/09/2017 DANIEL PAT, ERIS Ball Ot V76.12 OTH SCREEN MAMMO-MALIGN NEOPLASM OF [place] 11/09/2017 FAVIO ERICKSON BUNDLE WRAPPER Ot R06.00 DYSPNEA, UNSPECIFIED 11/09/2017 FAVIO ERICKSON BUNDLE WRAPPER Ot R07.9 CHEST PAIN, UNSPECIFIED 11/09/2017 FAVIO ERICKSON BUNDLE WRAPPER Ot Z82.49 FAMILY HX OF ISCHEM HEART DIS AND OTH DI 11/09/2017 FAVIO ERICKSON BUNDLE WRAPPER Ot Z12.31 ENCNTR SCREEN MAMMOGRAM FOR MALIGNANT NE 11/09/2017 FAVIO ERICKSON BUNDLE WRAPPER Ot R92.2 INCONCLUSIVE MAMMOGRAM 11/09/2017 FAVIO ERICKSON BUNDLE WRAPPER Ot R92.8 OTH ABN AND INCONCLUSIVE FINDINGS ON DX 11/09/2017 AV PAT, LLOYD Sol Ot R92.8 OTH ABN AND INCONCLUSIVE FINDINGS ON DX 11/09/2017 FAVIO ERICKSON BUNDLE WRAPPER Ot R92.1 MAMMOGRAPHIC CALCIFCN FOUND ON DIAGNOSTI 11/09/2017 FAVIO ERICKSON BUNDLE WRAPPER Ot R92.1 MAMMOGRAPHIC CALCIFCN FOUND ON DIAGNOSTI 11/14/2017 FAVIO ERICKSON BUNDLE WRAPPER Ot E04.2 NONTOXIC MULTINODULAR GOITER 11/14/2017 FAVIO ERICKSON SUNITA Ot Z53.9 PROCEDURE AND TREATMENT NOT CARRIED OUT, 11/17/2017 JAZMÍN GN MD Ot G47.33 OBSTRUCTIVE SLEEP APNEA (ADULT) (PEDIATR 11/17/2017 JAZMÍN NG MD, Ot G47.33 OBSTRUCTIVE SLEEP APNEA (ADULT) (PEDIATR 12/05/2017 JAZMÍN NG MD Ot E66.01 MORBID (SEVERE) OBESITY DUE TO EXCESS CA 12/05/2017 JAZMÍN NG MD Ot I07.1 RHEUMATIC TRICUSPID INSUFFICIENCY 12/05/2017 JAZMÍN NG MD Ot I25.10 ATHSCL HEART DISEASE OF [place] CORONARY 12/05/2017 JAZMÍN NG MD Ot I34.0 NONRHEUMATIC MITRAL (VALVE) INSUFFICIENC 12/05/2017 JAZMÍN NG MD Ot Z72.0 TOBACCO USE 12/15/2017 JAZMÍN NG MD Ot E66.01 MORBID (SEVERE) OBESITY DUE TO EXCESS CA 12/15/2017 JAZMÍN NG MD Ot I07.1 RHEUMATIC TRICUSPID INSUFFICIENCY 12/15/2017 JAZMÍN NG MD Ot I25.10 ATHSCL HEART DISEASE OF [place] CORONARY 12/15/2017 JAZMÍN NG MD Ot I34.0 [...] Status Pt. Type Provider Facility Loc./Unit Complaint [id number] 12/02/2017 10:03:00 12/02/2017 23:59:59 CLS Outpatient JAZMÍN NG MD [facility] CARD I25.10 CAD [id number] 11/16/2017 21:02:00 11/17/2017 06:05:00 DIS Outpatient JAZMÍN NG MD [facility] SLEEP JACOBO G47.33 [id number] 11/11/2017 11:30:00 11/11/2017 23:59:59 CLS Preadmit FAVIO ERICKSON BUNDLE WRAPPER [facility] CARD [id number] 11/10/2017 10:45:00 11/10/2017 23:59:59 CLS Outpatient FAVIO ERICKSON BUNDLE WRAPPER [facility] RAD MULTIPLE THYROID NODULES [id number] 05/11/2017 10:27:00 05/11/2017 23:59:59 CLS Outpatient FAVIO ERICKSON BUNDLE WRAPPER [facility] RAD ABN MAMMO [id number] 05/02/2017 08:20:00 05/02/2017 23:59:59 CLS Outpatient FAVIO ERICKSON BUNDLE WRAPPER [facility] RAD ABNORMAL MAMMO R92.8 [id number] 04/22/2017 07:53:00 04/22/2017 23:59:59 CLS Preadmit FAVIO ERICKSON BUNDLE WRAPPER [facility] RAD SCREENING [id number] 11/11/2016 08:21:00 11/11/2016 23:59:59 CLS Outpatient LLOYD LEY MD [facility] RAD R92.8 ABNORMAL MAMMO [id number] 04/22/2016 14:18:00 04/22/2016 14:20:00 DIS Outpatient FAVIO ERICKSON BUNDLE WRAPPER [facility] LAB A09 [id number] 03/30/2016 13:45:00 04/22/2016 14:20:00 DIS Outpatient FAVIO ERICKSON [facility] LAB DIARRHEA [id number] 04/09/2016 07:49:00 04/09/2016 23:59:59 CLS Outpatient FAVIO ERICKSON [facility] RAD OTHER ABNORMAL INCONCLUSIVE FINDINGS [id number] 03/30/2016 13:53:00 03/30/2016 23:59:59 CLS Outpatient FAVIO ERICKSON [facility] RAD SCREENING [id number] 08/27/2015 07:45:00 08/27/2015 23:59:59 CLS Outpatient FAVIO ERICKSON [facility] CARD CHEST PAIN,DYSPNEA, FAMILY HX OF ISCHEMIC HEART DIS [id number] 01/06/2015 11:07:00 01/06/2015 23:59:59 CLS Outpatient ERIS SANCHEZ MD [facility] RAD SCREENING [id number] 12/24/2013 13:00:00 12/24/2013 23:59:59 CLS Outpatient KARMEN JAEGER MD [facility] TKR, ANTICOAG THERAPY [id number] 12/20/2013 11:55:00 12/20/2013 23:59:59 CLS Outpatient KARMEN JAEGER MD [facility] ANTICOAG THERAPY [id number] 12/17/2013 11:35:00 12/17/2013 23:59:59 CLS Outpatient KARMEN JAEGER MD [facility] ANTI COG THERAPY
--- NOTE | 2017-12-21 05:41 | Diagnostic Imaging Report ---
INDICATION: Chest pain COMPARISON: None FINDINGS: Single frontal view of the chest demonstrates borderline prominent cardiac silhouette. Pulmonary vasculature is within normal limits. Evaluation of the lung vee is somewhat suboptimal given obscuration by overlying soft tissues, but no focal consolidation is identified. No large pleural effusion or pneumothorax is seen. The visualized osseous structures show no acute abnormalities. IMPRESSION: 1. Borderline prominent cardiac silhouette, which may be accentuated by portable technique. Otherwise, no evidence of failure or focal infiltrate. Dictated by: Dictated on workstation # [id number]
[2017-12-21] MEDS ORDERED: NITROGLYCERIN 0.4 MG SL TABS BTL 25'S SL PRN (06:30)
[2017-12-21] MEDS ORDERED: morphine INJ 4 MG/ML 1 ML (VIAL/SYRINGE) IV PRN (06:30)
[2017-12-21] MEDS ORDERED: OMEG-154 PO (08:54)
[2017-12-21] MEDS ORDERED: L.AC1CAP6 PO (08:54)
[2017-12-21] MEDS ORDERED: CHOL5000 PO (08:54)
[2017-12-21] MEDS ORDERED: MULT-35 PO (08:54)
[2017-12-21] MEDS ORDERED: MAGN400T39 PO ×2 (08:54)
[2017-12-21] MEDS ORDERED: CYAN10006 PO (08:56)
[2017-12-21] MEDS ORDERED: CYAN25006 SL (08:57)
[2017-12-21 10:09] LABS: BASOPHILS % (AUTO) 0 % (0-10); EOSINOPHILS # (AUTO) 0.3 10^3/uL (0.0-0.3); EOSINOPHILS % (AUTO) 4 % (0-10); HEMATOCRIT 38 % (35-52); HEMOGLOBIN 12.7 G/DL (11.5-16.0); LYMPHOCYTES # (AUTO) 2.4 X 10^3 (1.0-4.0); LYMPHOCYTES % (AUTO) 32 % (12-44); MEAN CORPUSCULAR HEMOGLOBIN 31 PG (25-34); MEAN CORPUSCULAR HGB CONC 33 G/DL (32-36); MEAN CORPUSCULAR VOLUME 94 FL (80-99); MONOCYTES # (AUTO) 0.7 X 10^3 (0.0-1.0); MONOCYTES % (AUTO) 10 % (0-12); NEUTROPHILS % (AUTO) 54 % (42-75); PLATELET COUNT 197 10^3/uL (130-400); RED BLOOD COUNT 4.06 10^6/uL (4.35-5.85); RED CELL DISTRIBUTION WIDTH 14.5 % (10.0-14.5); WHITE BLOOD COUNT 7.4 10^3/uL (4.3-11.0)
[2017-12-21 10:27] LABS: ALANINE AMINOTRANSFERASE 26 U/L (0-55); ALKALINE PHOSPHATASE 89 U/L (40-136); BILIRUBIN,TOTAL 0.5 MG/DL (0.1-1.0); BUN/CREATININE RATIO 18; CALCIUM 9.9 MG/DL (8.5-10.1); CARBON DIOXIDE 18 MMOL/L (21-32); CHLORIDE 111 MMOL/L (98-107); CHOLESTEROL 185 MG/DL (< 200); CREATININE SERUM 0.67 MG/DL (0.60-1.30); GFR ESTIMATED > 60; GLUCOSE 102 MG/DL (70-105); HDL CHOLESTEROL 46 MG/DL (40-60); POTASSIUM 3.6 MMOL/L (3.6-5.0); SODIUM 142 MMOL/L (135-145); TRIGLYCERIDES 239 MG/DL (<150); VLDL CHOLESTEROL 48 MG/DL (5-40)
[2017-12-21] MEDS ORDERED: FLUT9.9S NS (10:41)
[2017-12-21] MEDS ORDERED: LORA10TA7 PO (10:41)
[2017-12-21] MEDS ORDERED: LIDOCAINE 1% INJ 20 ML 20 ML VIAL ONE (10:50)
[2017-12-21] MEDS ORDERED: NS IV 1000 ML 1,000 ML ONE (10:51)
[2017-12-21] MEDS ORDERED: HEParin (CATH LAB) 2,000 ML IV ONE (10:51)
--- NOTE | 2017-12-21 10:59 | Cardiac Procedure Note-CS/ASA ---
Pre-Procedure Note Pre-Op Procedure Note H&P Reviewed The H&P was reviewed, patient examined and no changes noted. Date H&P Reviewed: Dec 21, 2017 Time H&P Reviewed: 10:59 Conscious Sedation Pre-Proced Time Reviewed: 10:59 ASA Class: 3 Airway Mallampati Classification: (ambler appropriate class) I. II. III, IV Lungs Heart ASA score ASA 1: a normal healthy patient ASA 2: a patient with a mild systemic disease (mid diabetes, controlled hypertension, obesity x ASA 3: a patient with a severe systemic disease that limits activity (angina , COPD, prior Myocardial infarction) ASA 4: a patient with an incapacitating disease that is a constant threat to life (CHF, renal failure) ASA 5: a moribund patient not expected to survive 24 hrs. (ruptured aneurysm) ASA 6: a declared brain patient whose organs are being harvested. For emergent operations, add the letter E after the classification Grade 3 Sedation Plan: Analgesia, Amnesia, Plan communicated to team members, Discussed options with patient/fam, Discussed risks with patient/fam Note The patient is an appropriate candidate to undergo the planned procedure, sedation, and anesthesia. The patient immediately re-assessed prior to indication. JAZMÍN NG MD Dec 21, 2017 10:59
--- NOTE | 2017-12-21 10:59 | Consultation-Cardiology ---
HPI-Cardiology Cardiology Consultation Date of Consultation 12/21/17 Date of Admission Time Seen by Provider: 10:54 Indication: chest pain HPI 62 years old lady with history of mild coronary artery disease, hypertension and hyperlipidemia, strong family history of heart disease, has baseline abnormal stress test from 2016, I was postponing the cardiac catheterization due to the fact that she was asymptomatic. Woke up at 230 in the morning with chest pain retrosternal radiating to the back and right shoulder and right arm associated with diaphoresis and shortness of breath, came into the emergency room by then she was feeling better. No further episodes were reported. No palpitation. No syncope or near syncopal episode no similar episodes recently, has been having Difficulties achieving adequate blood pressure control. Home Medications & Allergies Allergies: Coded Allergies: NSAIDS (Non-Steroidal Anti-Inflamma (Verified Allergy, Severe, 12/21/17) aspirin (Unverified Allergy, Unknown, 12/21/17) NEVER HAD IT DUE TO NSAID ALLERGY Home Medication List Reviewed: Yes [id number] Hx Patient Social History Marital Status: Employed/Student: employed Alcohol Use: Denies Use Recreational Drug Use: No Smoking Status: Former Smoker Type Used: Cigarettes Recent Foreign Travel: No Recent Infectious Disease Expo: No Recent Hopitalizations: No Physical Abuse Screen: No Sexual Abuse: No Past Medical History past medical history as described below Family Medical History Family History: Hypertension Myocardial infarction Patient's brother is Patient's father is Constitutional: no symptoms reported, see HPI EENTM: see HPI Respiratory: no symptoms reported, see HPI, dyspnea on exertion Cardiovascular: see HPI, chest pain; No edema, No Hx of Intervention, No palpitations, No syncope, No vascular heart diseas, No other Gastrointestinal: no symptoms reported, see HPI Genitourinary: no symptoms reported, see HPI Musculoskeletal: no symptoms reported, see HPI Skin: no symptoms reported, see HPI Psychiatric/Neurological: No Symptoms Reported, See HPI Reviewed Test Results Reviewed Test Results Lab Laboratory Tests Test 12/21/17 04:05 12/21/17 10:00 Range/Units White Blood Count 10.0 7.4 4.3-11.0 10^3/uL Red Blood Count 4.05 L 4.06 L 4.35-5.85 10^6/uL Hemoglobin 12.8 12.7 11.5-16.0 G/DL Hematocrit 38 38 35-52 % Mean Corpuscular Volume 94 94 80-99 FL Mean Corpuscular Hemoglobin 32 31 25-34 PG Mean Corpuscular Hemoglobin Concent 34 33 32-36 G/DL Red Cell Distribution Width 14.6 H 14.5 10.0-14.5 % Platelet Count 211 197 130-400 10^3/uL Mean Platelet Volume 11.8 H 12.0 H 7.4-10.4 FL Neutrophils (%) (Auto) 52 54 42-75 % Lymphocytes (%) (Auto) 37 32 12-44 % Monocytes (%) (Auto) 8 10 0-12 % Eosinophils (%) (Auto) 3 4 0-10 % Basophils (%) (Auto) 0 0 0-10 % Neutrophils # (Auto) 5.1 4.0 1.8-7.8 X 10^3 Lymphocytes # (Auto) 3.7 2.4 1.0-4.0 X 10^3 Monocytes # (Auto) 0.8 0.7 0.0-1.0 X 10^3 Eosinophils # (Auto) 0.3 0.3 0.0-0.3 10^3/uL Basophils # (Auto) 0.0 0.0 0.0-0.1 10^3/uL Prothrombin Time 12.9 12.2-14.7 SEC INR Comment 1.0 0.8-1.4 Activated Partial Thromboplast Time 28 24-35 SEC Sodium Level 143 142 135-145 MMOL/L Potassium Level 3.2 L 3.6 3.6-5.0 MMOL/L Chloride Level 107 111 H 98-107 MMOL/L Carbon Dioxide Level 21 18 L 21-32 MMOL/L Anion Gap 15 H 13 5-14 MMOL/L Blood Urea Nitrogen 15 12 7-18 MG/DL Creatinine 0.76 0.67 0.60-1.30 MG/DL Estimat Glomerular Filtration Rate > 60 > 60 BUN/Creatinine Ratio 20 18 Glucose Level 113 H 102 70-105 MG/DL Calcium Level 9.8 9.9 8.5-10.1 MG/DL Magnesium Level 2.2 1.8-2.4 MG/DL Total Bilirubin 0.4 0.5 0.1-1.0 MG/DL Aspartate Amino Transf (AST/SGOT) 25 26 5-34 U/L Alanine Aminotransferase (ALT/SGPT) 25 26 0-55 U/L Alkaline Phosphatase 94 89 40-136 U/L Total Creatine Kinase 45 29-168 U/L Creatine Kinase MB 0.6 <6.6 NG/ML Troponin I < 0.30 <0.30 NG/ML B-Type Natriuretic Peptide 36.1 <100.0 PG/ML Total Protein 7.2 7.0 6.4-8.2 GM/DL Albumin 4.2 4.0 3.2-4.5 GM/DL Amylase Level 36 25-125 U/L Lipase 17 8-78 U/L Triglycerides Level 239 H <150 MG/DL Cholesterol Level 185 < 200 MG/DL LDL Cholesterol Direct 109 1-129 MG/DL VLDL Cholesterol 48 H 5-40 MG/DL HDL Cholesterol 46 40-60 MG/DL Physical Exam Vital Signs Vital Signs - First Documented 12/21/17 12/21/17 04:00 04:11 Temp 97.8 Pulse 70 Resp 13 B/P (MAP) 147/74 (98) Pulse Ox 93 O2 Delivery Room Air Capillary Refill : Less Than 3 Seconds General Appearance: No Apparent Distress, WD/WN Eyes: Bilateral Eye Normal Inspection, Bilateral Eye PERRL, Bilateral Eye EOMI HEENT: PERRL/EOMI, TMs Normal, Normal ENT Inspection, Pharynx Normal Neck: Full Range of Motion, Normal Inspection, Non Tender, Supple, Carotid Bruit Respiratory: Chest Non Tender, Lungs Clear, Normal Breath Sounds, No Accessory Muscle Use, No Respiratory Distress Cardiovascular: Regular Rate, Rhythm, No Edema, No Gallop, No JVD, No Murmur, Normal Peripheral Pulses Gastrointestinal: Normal Bowel Sounds, No Organomegaly, No Pulsatile Mass, Non Tender, Soft Back: Normal Inspection, No CVA Tenderness, No Vertebral Tenderness Extremity: Normal Capillary Refill, Normal Inspection, Normal Range of Motion, Non Tender, No Calf Tenderness, No Pedal Edema Neurologic/Psychiatric: Alert, Oriented x3, No Motor/Sensory Deficits, Normal Mood/Affect Skin: Normal Color, Warm/Dry Lymphatic: No Adenopathy A/P-Cardiology Admission Diagnosis Chest pain nonspecific etiology Coronary artery disease Hypertension Hyperlipidemia Assessment/Plan chest pain nonspecific etiology, atypical in presentation, had some EKG changes , Cardec enzymes are negative, has baseline stress test abnormality from 2016 and the idea of cardiac catheterization was discussed and delayed due to the fact that she was asymptomatic at that time. I discussed with her the management plan at this time, recommended cardiac catheterization possible PTCA. We'll proceed with the procedure Coronary artery disease, cardiac catheterization was done in [facility] in April 2014 showing mild coronary artery disease nonobstructive disease, normal LV function. planning to repeat cardiac catheterization Hypertension, Monitor blood pressure and restart home medication Hyperlipidemia, monitor lipids Hypothyroidism, managed by medical team. Strong family history of heart disease, brother of a heart attack in his 60s, another brother had open-heart surgery Tobaccoism, stopped smoking in December 2016. Encouraged to continue with smoking cessation Mild bilateral carotid stenosis nonobstructive disease, ultrasound was done in October 2016, continue to monitor BMI 47, discussed weight loss and possible sleep apnea, need sleep study Clinical Quality Measures DVT/VTE Risk/Contraindication: Risk Factor Score Per Nursin RFS Level Per Nursing on Admit: 4+=Very High JAZMÍN NG MD Dec 21, 2017 10:59
[2017-12-21] MEDS ORDERED: NS IV 1000 ML 1,000 ML IV SCH ×3 (11:00→11:54)
[2017-12-21] MEDS ORDERED: fentaNYL INJECTION 100 MCG/2 ML AMP ONE (11:16)
[2017-12-21] MEDS ORDERED: MIDAZOLAM 5 MG/5 ML (VERSED) VIAL ONE (11:16)
[2017-12-21 11:32] LABS: CARDIAC PROFILE 2 < 0.30 NG/ML (<0.30)
[2017-12-21] MEDS ORDERED: HEParin 1000 UNIT/ML (10ML VIAL) FOR BOLUS ONE (11:32)
[2017-12-21] MEDS ORDERED: NITRO DRIP 25000 MCG/D5W 250 ML IV ONE (11:32)
[2017-12-21] MEDS ORDERED: VERAPAMIL 5 MG/2 ML (CALAN) VIAL IV ONE (11:32)
--- NOTE | 2017-12-21 11:37 | Short Stay Summary-Hospitalist ---
History of Present Illness HPI/Chief Complaint CC: Chest pain HPI: this is a 62-year-old white female who presented to the emergency room with complaints of chest pain. Her primary care provider is Dr. Posadas. She is compliant with sleep apnea treatment with sleep apnea. She reports that every once while she does have a twinge of chest pain since admission. She was assessed in need cardiac catheterization due to multiple risk factors and cardiology did perform that and at the time of this dictation the study was normal and we were preparing for discharge. Acute gastritis is suspected with esophagitis considering her proton pump inhibitor maintenance but never had an EGD and Dr. Trejo was consulted to arrange for that to be done as an outpatient. Source: patient Exam Limitations: no limitations Date Seen 12/21/17 Time Seen by Provider: 10:40 Attending Physician Marito Landrum MD PCP Mark Posadas DO Referring Physician Date of Admission Dec 21, 2017 at 05:00 Home Medications & Allergies Home Medications Reviewed patient Home Medication Reconciliation performed by pharmacy medication reconciliations school bus technician and/or nursing. Patients Allergies have been reviewed. 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) Patient Social History Marrital Status: Employed/Student: employed Alcohol Use: Denies Use Recreational Drug Use: No Smoking Status: Former Smoker Former Smoker, Quit: Dec 21, 2016 Type Used: Cigarettes Physical Abuse Screen: No Sexual Abuse: No Recent Foreign Travel: No Contact w/other who traveled: No Recent Hopitalizations: No Recent Infectious Disease Expo: No Immunizations Up To Date Pediatric: Yes Seasonal Allergies Seasonal Allergies: No Past Medical History Surgeries: Appendectomy, Gallbladder, Hysterectomy, Joint Replacement, Orthopedic Respiratory: Sleep Apnea Currently Using CPAP: Yes Currently Using BIPAP: No Cardiac: Chronic Edema/Swelling, High Cholesterol, Hypertension Neurological: Headaches /Migraines, Neuropathy Female Reproductive Disorders: Denies Hysterectomy, Menopausal Gastrointestinal: Gall Bladder Disease Musculoskeletal: Arthritis, Fractures Endocrine: Hypothyroidsim Are Your Blood Sugars Over 250: No Hearing Impairment: Hard of Hearing, Bilateral Hearing Aide Did You Recieve Any Treatments: No Psychosocial: Anxiety, Depression History of Blood Disorders: No Adverse Reaction to Blood Paredes: No Family History Hypertension Myocardial infarction Patient's brother is Patient's father is Hypertension Review of Systems Constitutional: see HPI, weakness EENTM: no symptoms reported Respiratory: no symptoms reported Cardiovascular: chest pain Gastrointestinal: no symptoms reported Genitourinary: no symptoms reported Musculoskeletal: no symptoms reported Skin: no symptoms reported Psychiatric/Neurological: No Symptoms Reported All Other Systems Reviewed Negative Unless Noted: Yes Physical Exam Physical Exam Vital Signs Vital Signs - First Documented 12/21/17 12/21/17 04:00 04:11 Temp 97.8 Pulse 70 Resp 13 B/P (MAP) 147/74 (98) Pulse Ox 93 O2 Delivery Room Air Capillary Refill : Less Than 3 Seconds General Appearance: No Apparent Distress, WD/WN, Chronically ill, Obese Eyes: Bilateral Eye Normal Inspection, Bilateral Eye PERRL HEENT: PERRL/EOMI, Normal ENT Inspection, Pharynx Normal Neck: Full Range of Motion, Normal Inspection, Non Tender, Supple, Carotid Bruit Respiratory: Chest Non Tender, Lungs Clear, Normal Breath Sounds, No Accessory Muscle Use, No Respiratory Distress Cardiovascular: Regular Rate, Rhythm, No Edema, No Gallop, No JVD, No Murmur, Normal Peripheral Pulses Gastrointestinal: Normal Bowel Sounds, No Organomegaly, No Pulsatile Mass, Non Tender, Soft Back: Normal Inspection, No CVA Tenderness, No Vertebral Tenderness Extremity: Normal Capillary Refill, Normal Inspection, Normal Range of Motion, Non Tender, No Calf Tenderness, No Pedal Edema Neurologic/Psychiatric: Alert, Oriented x3, No Motor/Sensory Deficits, Depressed Affect Skin: Normal Color, Warm/Dry Lymphatic: No Adenopathy Results Results/Procedures Labs Laboratory Tests 12/21/17 04:05 12/21/17 10:00 Patient resulted labs reviewed. Short Stay Diagnosis Discharge Diagnosis-Short Stay Admission Diagnosis Assessment: Chest pain JACOBO GERD w/presumed acute gastritis since cath normal Plan: DC home Resume all meds Dr Trejo for EGD as outpt Final Discharge Diagnosis Assessment: Chest pain JACOBO GERD w/presumed acute gastritis since cath normal Plan: DC home Resume all meds Dr Trejo for EGD as outpt Conclusion Plan Plan: DC home Resume all meds Dr Trejo for EGD as outpt Diagnosis/Problems Diagnosis/Problems (1) Chest pain Status: Resolved Qualifiers: Qualified Codes: R07.9 - Chest pain, unspecified (2) GERD with esophagitis Status: Acute (3) JACOBO on CPAP Status: Chronic (4) Obesity Status: Chronic Qualifiers: (5) Hypothyroidism Status: Chronic Qualifiers: Qualified Codes: E03.9 - Hypothyroidism, unspecified (6) Restless leg syndrome Status: Chronic Clinical Quality Measures DVT/VTE Risk/Contraindication: Risk Factor Score Per Nursin RFS Level Per Nursing on Admit: 4+=Very High JUNI MARROQUIN DO Dec 21, 2017 11:37
--- NOTE | 2017-12-21 11:55 | Discharge Inst-Post CATH ---
Discharge Inst-CATH Post Cardiac Cath D/C Inst Follow Up/Plan Appointment with Dr. Queen's office in 6 weeks CARDIAC CATH DISCHARGE INSTRUCTIONS *Hold Metformin for 48 hours post heart cath. ACTIVITY * Go Home directly and rest. * Limit activity of the leg (or wrist if it was used) for 7 days including aerobics, swimming, jogging, bicycling, etc. * Restrict stair-climbing for 7 days if possible, if not, climb up with your non -cath leg, then bring together on the same step. * Avoid lifting, pushing, pulling or excessive movement of the affected extremity for 7 days. * Customary sexual activity may be resumed after 2 days-use caution not to use a position that strains or causes pain to the affected extremity. * No driving for 24 hours. * NO SMOKING. * Avoid straining for bowel movements for 7 days. * Gentle walking on level ground is allowed. * Returning to work will depend on the type of procedure and the results. Your doctor will discuss this with you. CALL YOUR DOCTOR FOR ANY OF THE FOLLOWING: *If bleeding from the puncture site occurs- Apply gentle pressure to site with clean cloth and call your doctor or EMS. * If a knot or lump forms under the skin, increases in size, or causes pain. * If bruising appears to be worsening or moving further down your leg instead of disappearing. * Temperature above 101 F. CARE OF YOUR GROIN INCISION; * Bruising or purple discoloration of the skin near the puncture site is common. * You may shower only, no bathtub bathing for 5 days. Be careful to avoid slipping as your leg may feel stiff. * If a closure device was used on your femoral artery, please see the attached guide regarding care of the device and your leg. * REMOVE the dressing from your groin the next day after your procedure in the shower. CARE OF YOUR WRIST INCISION; * Bruising or purple discoloration of the skin near the puncture site is common. * You may shower. * DO NOT submerge wrist. * Remove dressing in 24 hours. JAZMÍN QUEEN MD Dec 21, 2017 11:55
--- NOTE | 2017-12-21 11:59 | Cardiac Cath Report ---
Cardiac Cath Report Physician (s)/Business Asst (s) Physician JAZMÍN NG MD Pre-Procedure Diagnosis Pre-Procedure Diagnosis: chest pain coronary artery disease Post-Procedure Note Procedure Start Date: Dec 21, 2017 Name of Procedure: Left heart catheterization, left ventriculogram Findings/Procedure Note PROCEDURE NOTE: After explaining the procedure to the patient, all pros and cons were explained , all questions were answered. The patient signed the consent and then she was placed on the cardiac catheterization laboratory. Groin was prepped SL fashion local anesthesia was used. Sheath placed in the right radial artery. [place] catheter was used for coronary angiogram and left ventriculogram At the end of the procedure the sheath was removed. Closure device vascular band used FINDINGS: Hemodynamics LV 148/19, end-diastolic pressure of 19 Aorta 144/86 mean of 91 ANATOMY: Left Main is free of obstructive disease Left Anterior Descending has 40-50 percent proximal stenosis otherwise nonobstructive disease Left Circumflex has mild disease distally small vessel disease nonobstructive disease Right Coronory Artery is dominant artery with mild disease obstructive disease LV Gram is normal in size with normal contractility estimated ejection fraction 60 percent CONCLUSION: 1. 40-50 percent proximal LAD stenosis nonobstructive disease 2. Mild coronary artery disease otherwise no significant obstructive disease 3. Normal left ventricular size and systolic function with estimated ejection fraction 60 percent DISCUSSION AND RECOMMENDATION: Medical therapy is recommended no intervention is needed Anesthesia Type: Conscious Sedation Estimated blood loss (mL): 5 ml Contrast Amount: 60 ml Total Radiation Dose: 702 ml Post-Procedure Diagnosis Post-operative diagnosis: Chest pain nonspecific etiology Coronary artery disease Hypertension Hyperlipidemia JAZMÍN NG MD Dec 21, 2017 11:59
[2017-12-21] MEDS ORDERED: LORATADINE (CLARITIN) 10 MG TAB PO PRN (12:45)
[2017-12-21] MEDS ORDERED: BACLOFEN 10 MG (LIORESAL) TAB PO PRN (12:45)
[2017-12-21] MEDS ORDERED: NON-FORMULARY MEDICATION 1 EA EA (Fluticasone Propionate (Flonase Allergy Relief) 2 SPRAY) NS PRN (12:45)
[2017-12-21] MEDS ORDERED: ACETAMINOPHEN 325 MG TABLET PO PRN (13:00)
[2017-12-21] MEDS ORDERED: ACETAMINOPHEN 325 MG TABLET ONE (13:02)
--- NOTE | 2017-12-21 14:09 | Consultation ---
History of Present Illness History of Present Illness Patient Consulted On(pratibha/time) 12/21/17 14:04 Date Seen by Provider: Dec 21, 2017 Time Seen by Provider: 13:45 Reason for Visit: chest pain History of Present Illness This is a 62 year old female who presented to the ER this morning with complaints of chest pain. She reports that this was very sharp and severe and thought this was her heart. She then underwent a cardiac catheterization, however this was normal and did not require stents. Upon further questioning she reports that she has had episodes of reflux and epigastric discomfort in the past but was much worse this morning. She reports that she does take a medication for reflux which she reports helps some. She denies any nausea or vomiting as well as no fever or chills. She reports that she has never had an upper endoscopy before. Allergies and Home Medications Allergies Coded Allergies: NSAIDS (Non-Steroidal Anti-Inflamma (Verified Allergy, Severe, 12/21/17) aspirin (Unverified Allergy, Unknown, 12/21/17) NEVER HAD IT DUE TO NSAID ALLERGY Home Medications Baclofen 10 Mg Tablet, 10 MG PO BID, (Reported) Baclofen 10 Mg Tablet, 10 MG PO DAILY PRN for MUSCLE SPASMS, (Reported) Budesonide/Formoterol Fumarate 10.2 Gm Hfa.aer.ad, 2 PUFF INH BID, (Reported) Cholecalciferol (Vitamin D3) 5,000 Unit Capsule, 10,000 UNIT PO DAILY, (Reported ) TAKES 2 (5,000 UNIT) CAPSULES Cyanocobalamin (Vitamin B-12) 2,500 Mcg Tab.subl, 2,500 MCG SL DAILY, (Reported) Fluticasone Propionate 9.9 Ml Hines.susp, 2 SPRAY NS DAILY PRN for ALLERGIES, ( Reported) 2 SPRAYS PER NOSTRIL DAILY X 2 DAYS THEN 1 SPRAY DAILY Hydrochlorothiazide 25 Mg Tablet, 25 MG PO DAILY, (Reported) L.acidoph & Paracasei,B.lactis 1 Each Capsule, 1 CAP PO DAILY, (Reported) Levothyroxine Sodium 150 Mcg Tablet, 150 MCG PO DAILY, (Reported) Loratadine 10 Mg Tablet, 10 MG PO DAILY PRN for ALLERGIES, (Reported) Magnesium Oxide 400 Mg Tablet, 400 MG PO DAILY, (Reported) Magnesium Oxide 400 Mg Tablet, 800 MG PO HS, (Reported) TAKES 2 (400MG) TABLETS Montelukast Sodium 10 Mg Tablet, 10 MG PO HS, (Reported) Multivitamin 1 Each Tablet, 1 TAB PO DAILY, (Reported) Stevens-3S/Dha/Epa/Fish Oil 1 Each Capsule.dr, 3 CAP PO HS, (Reported) Pantoprazole Sodium 40 Mg Tablet.dr, 40 MG PO DAILY, (Reported) Pitavastatin Calcium 2 Mg Tablet, 1 MG PO HS, (Reported) TAKES 1/2 (2MG) TABLET Pregabalin 50 Mg Capsule, 50 MG PO HS, (Reported) Topiramate 50 Mg Tablet, 50 MG PO BID, (Reported) Patient Home Medication List Home Medication List Reviewed: Yes Past Lnitltz-Gswdpk-Sjpsig Hx Past Med/Social Hx: Reviewed Nursing 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, 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) Patient Social History Alcohol Use: Denies Use Recreational Drug Use: No Smoking Status: Former Smoker (40 pack years) Type Used: Cigarettes Former Smoker, Quit: Dec 21, 2016 Recent Foreign Travel: No Contact w/Someone Who Travel: No Recent Infectious Disease Expo: No Recent Hopitalizations: No Physical Abuse: No Sexual Abuse: No Immunizations Up To Date PED Vaccines UTD: Yes Seasonal Allergies Seasonal Allergies: No Past Medical History Surgeries: Yes Appendectomy, Gallbladder, Hysterectomy (Complete), Joint Replacement (Left total knee), Orthopedic (Right schoulder arthroscopy, Right ACL repair) Respiratory: Yes Sleep Apnea, COPD Currently Using CPAP: Yes Currently Using BIPAP: No Cardiac: Yes Chronic Edema/Swelling, High Cholesterol, Hypertension Neurological: No Headaches /Migraines, Neuropathy 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, Menopausal Genitourinary: No Gastrointestinal: Yes Gall Bladder Disease Musculoskeletal: Yes Arthritis, Fractures Endocrine: Yes Hypothyroidsim Are Your Blood Sugars Over 250: No HEENT: Yes Hearing Impairment: Hard of Hearing, Bilateral Hearing Aide Cancer: No Did You Recieve Any Treatments: No Psychosocial: Yes Anxiety, Depression Nursing Suicide Risk Score: 0 Integumentary: No Blood Disorders: No Adverse Reaction/Blood Tranf: No Family Medical History Hypertension Myocardial infarction Patient's brother is Patient's father is Hypertension Review of Systems-General Constitutional: weight gain EENTM: no symptoms reported Respiratory: no symptoms reported Cardiovascular: chest pain Gastrointestinal: No abdominal pain; heartburn; No nausea, No vomiting Genitourinary: no symptoms reported Musculoskeletal: no symptoms reported Skin: no symptoms reported Psychiatric/Neurological: No Symptoms Reported Physical Exam-General Problems Physical Exam Vital Signs Vital Signs - First Documented 12/21/17 12/21/17 04:00 04:11 Temp 97.8 Pulse 70 Resp 13 B/P (MAP) 147/74 (98) Pulse Ox 93 O2 Delivery Room Air Capillary Refill : Less Than 3 Seconds General Appearance: WD/WN, no apparent distress HEENT: PERRL/EOMI Neck: non-tender, full range of motion, supple, normal inspection Respiratory: chest non-tender, lungs clear, normal breath sounds, no respiratory distress, no accessory muscle use Cardiovascular: regular rate, rhythm, no edema Gastrointestinal: normal bowel sounds, non tender, soft, no organomegaly Back: normal inspection, no CVA tenderness, no vertebral tenderness Extremities: normal range of motion, non-tender, normal inspection Neurologic/Psychiatric: alert, oriented x 3 Skin: normal color, warm/dry Assessment/Plan Assessment/Plan Admission Diagnosis/Plan A 62 year old female with symptomatic GERD. At this time we will recommend proceeding with an EGD as an outpatient. The risks, benefits, and home care instructions were explained to the patient. The patient verbalized understanding of instructions and agreed to proceed as planned. We will proceed with scheduling patient for an EGD. Clinical Quality Measures DVT/VTE Risk/Contraindication: Risk Factor Score Per Nursin RFS Level Per Nursing on Admit: 4+=Very High Copy Copies To 1: ERICKA LINDA MD, DUSTIN L APRN Dec 21, 2017 14:09
[2017-12-21] MEDS ORDERED: RT-ADVAIR HFA 115/21 MCG PER PUFF IH SCH (20:00)
[2017-12-21] MEDS ORDERED: MONTELUKAST 10 MG (SINGULAIR) TAB PO SCH (21:00)
[2017-12-21] MEDS ORDERED: OMEGA PO SCH (21:00)
[2017-12-21] MEDS ORDERED: [UNRECOGNIZED DRUG - OTHER] PO SCH (21:00)
[2017-12-21] MEDS ORDERED: MAGNESIUM OXIDE 800 MG PO SCH (21:00)
[2017-12-21] MEDS ORDERED: PITAVASTATIN CALCIUM 1 MG PO SCH (21:00)
[2017-12-21] MEDS ORDERED: NON-FORMULARY MEDICATION 1 EA EA (Topiramate 50 MG) PO SCH (21:00)
[2017-12-21] MEDS ORDERED: BACLOFEN 10 MG (LIORESAL) TAB PO SCH (21:00)
[2017-12-21] MEDS ORDERED: NON-FORMULARY MEDICATION 1 EA EA (Budesonide/Formoterol Fumarate (Symbicort 80-4.5 Mcg Inh INH SCH (21:00)
[2017-12-21] MEDS ORDERED: DHA PO SCH (21:00)
[2017-12-21] MEDS ORDERED: EPA PO SCH (21:00)
[2017-12-21] MEDS ORDERED: NON-FORMULARY MEDICATION 1 EA EA (Pregabalin (Lyrica) 50 MG) PO SCH (21:00)
[2017-12-21] MEDS ORDERED: MAGNESIUM OXIDE (MAG-OX)400 MG TAB PO SCH (21:00)
[2017-12-22] MEDS ORDERED: LEVOTHYROXINE 150 MCG (LEVOTHROID) TAB PO SCH (06:30)
[2017-12-22] MEDS ORDERED: MULTIVIT W/MINERALS TAB (THERAGRAN M) PO SCH (07:00)
[2017-12-22] MEDS ORDERED: PANTOPRAZOLE 40 MG (PROTONIX) TAB PO SCH (07:00)
[2017-12-22] MEDS ORDERED: NON-FORMULARY MEDICATION 1 EA EA (L.acidoph & Paracasei,B.lactis (Probiotic) 1 CAP) PO SCH (09:00)
[2017-12-22] MEDS ORDERED: NON-FORMULARY MEDICATION 1 EA EA (Hydrochlorothiazide 25 MG) PO SCH (09:00)
[2017-12-22] MEDS ORDERED: HYDROCHLOROTHIAZIDE 25 MG (HCTZ) TAB PO SCH (09:00)
[2017-12-22] MEDS ORDERED: VITAMIN D3 5,000 UNITS (CHOLECALCIFEROL ) CAPSULE PO SCH (09:00)
[2017-12-22] MEDS ORDERED: CYANOCOBALAMIN 2500 MCG SL SCH (09:00)
[2017-12-22] MEDS ORDERED: NON-FORMULARY MEDICATION 1 EA EA (Multivitamin (Daily Multiple Vitamin) 1 TAB) PO SCH (09:00)
[2017-12-22] MEDS ORDERED: NON-FORMULARY MEDICATION 1 EA EA (Magnesium Oxide (Magnesium) 400 MG) PO SCH (09:00)
[2017-12-22] MEDS ORDERED: NON-FORMULARY MEDICATION 1 EA EA (Cholecalciferol (Vitamin D3) (Vitamin D3) 10,000 UNIT) PO SCH (09:00)
== END 2017-12-21 16:30 | disposition home or self-care (01) ==
LOC: EDUNIT# 03:55 → ER 03:58 → 4TH 05:00
PROVIDERS: ADMIT Internal Medicine; ATTEND Internal Medicine
DX: R07.89 Other chest pain (principal); I25.10 Atherosclerotic heart disease of native coronary artery without angina pectoris; K21.9 Gastro-esophageal reflux disease without esophagitis; K20.9 Esophagitis, unspecified; I10 Essential (primary) hypertension; E78.5 Hyperlipidemia, unspecified; J44.9 Chronic obstructive pulmonary disease, unspecified; E03.9 Hypothyroidism, unspecified; I65.23 Occlusion and stenosis of bilateral carotid arteries; G47.33 Obstructive sleep apnea (adult) (pediatric); G25.81 Restless legs syndrome; E66.9 Obesity, unspecified; Z68.42 Body mass index [BMI] 45.0-49.9, adult; Z82.49 Family history of ischemic heart disease and other diseases of the circulatory system; Z87.891 Personal history of nicotine dependence
CPT/HCPCS: 36415; 71045; 80053; 80061; 82150; 82550; 82553; 83690; 83735; 83880; 84484; 85025; 85610; 85730; 93005; 93041; 93458

== ENCOUNTER 2017-12-30 11:33 | Day surgery (SDC) | payer BC ==
[~2017-12-30] VITALS: Ht 162.6 cm; Wt 124.3 kg
[~2017-12-30 11:33] MED LIST changes: +METH-287 PO
[2017-12-30] MEDS ORDERED: NS IV 500 ML 500 ML IV PRN (11:35)
[2017-12-30] MEDS ORDERED: NS IV 500 ML 500 ML ONE (11:46)
[2017-12-30] MEDS ORDERED: LIDOCAINE JELLY 2% (XYLOCAINE) 5 ML TUBE ONE (12:04)
[2017-12-30 12:05] VITALS: BP 135/68
[2017-12-30] MEDS ORDERED: MIDAZOLAM 2 MG/2 ML (VERSED) VIAL ONE ×4 (12:05)
[2017-12-30] MEDS ORDERED: fentaNYL INJECTION 100 MCG/2 ML AMP ONE ×2 (12:05)
--- NOTE | 2017-12-30 12:06 | Conscious Sedation/ASA ---
Conscious Sedation Pre-Proced Time Reviewed: 12:00 ASA Class: 2 Airway Mallampati Classification: (sault [place] appropriate class) I. II. III, IV Lungs Heart ASA score ASA 1: a normal healthy patient ASA 2: a patient with a mild systemic disease (mid diabetes, controlled hypertension, obesity ASA 3: a patient with a severe systemic disease that limits activity (angina , COPD, prior Myocardial infarction) ASA 4: a patient with an incapacitating disease that is a constant threat to life (CHF, renal failure) ASA 5: a moribund patient not expected to survive 24 hrs. (ruptured aneurysm) ASA 6: a declared brain patient whose organs are being harvested. For emergent operations, add the letter E after the classification Grade 2 Sedation Plan: Analgesia, Amnesia, Plan communicated to team members, Discussed options with patient/fam, Discussed risks with patient/fam Note The patient is an appropriate candidate to undergo the planned procedure, sedation, and anesthesia. The patient immediately re-assessed prior to indication. ERICKA LINDA MD Dec 30, 2017 12:06 pm
--- NOTE | 2017-12-30 12:07 | Progress Note-Pre Operative ---
Pre-Operative Progress Note H&P Reviewed The H&P was reviewed, patient examined and no changes noted. Date Seen by Provider: Dec 30, 2017 Time Seen by Provider: 12:00 Date H&P Reviewed: Dec 30, 2017 Time H&P Reviewed: 12:00 Pre-Operative Diagnosis: GERD, chest pain ERICKA LINDA MD Dec 30, 2017 12:07 pm
[2017-12-30] MEDS ORDERED: morphine INJ 10 MG/ML 1ML (SYR OR VIAL) IV PRN (12:15)
[2017-12-30] MEDS ORDERED: CLOP75TA69 PO (12:15)
[2017-12-30] MEDS ORDERED: HYDROcodone/APAP 5 MG/325 MG (LORTAB) TAB PO PRN (12:15)
[2017-12-30] MEDS ORDERED: ONDANSETRON 4 MG/2 ML (SDV) Z0FRAN IV PRN (12:15)
[2017-12-30] MEDS ORDERED: RIVA10TA PO (12:15)
[2017-12-30] MEDS ORDERED: ACETAMINOPHEN 325 MG TABLET PO PRN (12:15)
[2017-12-30] MEDS: fentaNYL INJECTION 100 MCG/2 ML AMP IVP PRN ×2 (12:25→12:28)
[2017-12-30] MEDS: MIDAZOLAM 2 MG/2 ML (VERSED) VIAL IVP PRN ×2 (12:27→12:30)
--- NOTE | 2017-12-30 12:55 | Progress Note-Post Operative ---
Post-Operative Progess Note Surgeon (s)/Prop Maker (s) Surgeon ERICKA LINDA MD Prop Maker: none Pre-Operative Diagnosis GERD, chest pain Post-Operative Diagnosis reflux esophagitis(class B), cardia moderate gastritis, small HH(1cm) Procedure & Operative Findings Date of Procedure 12/30/17 Procedure Performed/Findings EGD with bx. Anesthesia Type CS Estimated Blood Loss Estimated blood loss (mL): minimal Specimens/Packing Specimens Removed GE jxn, antrum ERICKA LINDA MD Dec 30, 2017 12:55 pm
[2017-12-30] MEDS ORDERED: SUCR1TAB36 PO (12:56)
--- NOTE | 2017-12-30 12:57 | Discharge Inst-Surgical ---
D/C Lap Instructions-KIDO New, Converted, or Re-Newed RX: RX on Chart Follow Up PRN Activity as tolerated High Fiber Diet 25g or more per day Avoid Alcohol, Caffeine, Spicy [place] and Acid foods. Drink 64 fluid oz or more of fluids per day. Symptoms to Report: Fever over 101 degree F, Nausea/Vomiting If any problems/questions: Contact your physician or go to Emergency Room ERICKA LINDA MD Dec 30, 2017 12:57 pm
[2017-12-30] MEDS ORDERED: HURRICAINE EXT TUBE (BENZOCAINE) XX ONE (13:15)
[2017-12-30] MEDS ORDERED: LIDOCAINE JELLY 2% (XYLOCAINE) 5 ML TUBE TOP ONE (13:15)
[2017-12-30 13:30] VITALS: BP 132/64
[2017-12-30 14:00] VITALS: BP 134/79
[2017-12-30 14:10] VITALS: BP 134/79
--- NOTE | 2017-12-30 20:51 | OPERATIVE REPORT ---
DATE OF SERVICE: 12/30/2017 ATTENDING PRIMARY CARE PHYSICIAN: Mark Posadas DO PREOPERATIVE DIAGNOSES: Chest pain, gastroesophageal reflux disease. POSTOPERATIVE DIAGNOSES: Reflux esophagitis class B, small hiatal hernia 1 cm in size, moderate gastritis towards the cardia of the stomach. PROCEDURE: EGD with biopsy. SURGEON: Ericka Linda MD ANESTHESIA: Conscious sedation. ESTIMATED BLOOD LOSS: Minimal. FINDINGS: Reflux esophagitis class B, small hiatal hernia approximately 1 cm in size, which was a type 1 sliding. There was a moderate gastritis at the cardia of the stomach. No formal ulcerations, polyps or any neoplasms. Pylorus and duodenum appeared normal. DISPOSITION: The patient tolerated the procedure well. INDICATIONS: The patient is a 62-year-old female who was seen as an inpatient on 12/21/2017 for chest pain. She reported this was sharp in nature and quick onset and was severe in nature. She underwent cardiac catheterization and did not require any stents; however, did develop thrombosis of the radial artery requiring a placement of 2 anticoagulants. She reports that she has had a long-standing history of gastroesophageal reflux disease, which has worsened over time as well. She reports that she did gain a significant amount of weight in the past few years due to smoking cessation. DESCRIPTION OF PROCEDURE: The patient was brought to the endoscopy suite, laid in the left lateral decubitus position with the head slightly elevated. After adequate IV pain and sedating medications and conscious sedation anesthesia, the mouthpiece was applied. The endoscope was placed in the mouth, visualizing the pharynx and hypopharyngeal region. Vocal cords, epiglottis and vallecula identified and appeared to be normal. The endoscope was then gently intubated in the esophageal opening and esophagus insufflated. The endoscope was then advanced to the first, second and third portion of the esophagus at the level of the GE junction, a reflux esophagitis class B identified. There were no ulcers or strictures identified in this region. A biopsy was taken with forceps with visualization of good hemostasis. The endoscope was then easily advanced into the stomach and endoscope retroflexed, visualizing a small hiatal hernia, which was a type 1 sliding hiatal hernia approximately 1 cm in size. Next to the cardia of the stomach, there was a moderate severity gastritis. There were no formal ulcerations, polyps or any neoplasms identified. There was a [id number]-kyjdzovh gastritis of the antrum and a biopsy was taken for H. pylori with forceps with cautery with visualization of good hemostasis. The endoscope was then advanced to the pylorus and the first and second portions of duodenum, which appeared normal with no distal obstructions. The endoscope was then slowly withdrawn while taking a second look and suctioning of residual air with no additional findings. The patient tolerated the procedure well. We will recommend the necessary lifestyle and diet accommodation including small and more frequent meals, avoidance of eating at night as well as head elevation while lying supine. She also needs to avoid caffeinated beverages, spicy, greasy and acidic foods as well as proceed with some form of regimen and weight loss strategy. She is currently on Protonix. However, we will add Carafate 1 gram q.i.d. for the next 2 weeks, then on a p.r.n. basis. Job ID: [id number] DocumentID: [id number] Dictated Date: 12/30/2017 13:02:05 Well Cleaner Date: 12/30/2017 20:51:01 Dictated By: ERICKA LINDA MD
== END 2017-12-30 14:15 | disposition home or self-care (01) ==
LOC: ENDO 11:33
PROVIDERS: ATTEND Surgery
DX: K21.0 Gastro-esophageal reflux disease with esophagitis (principal); K44.9 Diaphragmatic hernia without obstruction or gangrene; K29.70 Gastritis, unspecified, without bleeding; I10 Essential (primary) hypertension; J44.9 Chronic obstructive pulmonary disease, unspecified; Z87.891 Personal history of nicotine dependence; Z79.899 Other long term (current) drug therapy
CPT/HCPCS: 88305; 88342

== ENCOUNTER → 2018-05-30 | Outpatient (CLI) | payer BC ==
[~2018-05-30] MED LIST changes: +CLOP75TA69 PO; +RIVA10TA PO; +SUCR1TAB36 PO
--- NOTE | 2018-05-30 13:53 | Diagnostic Imaging Report ---
INDICATION: Routine screening. COMPARISON: 05/02/2017 and 03/30/2016. TECHNIQUE: 2D and 3D bilateral screening mammography was performed with CAD. FINDINGS: Scattered fibroglandular densities are identified bilaterally. The circumscribed nodule in the outer left breast appears stable and consistent with a benign etiology. A stereotactic clip in the far posterior left breast is seen, consistent with prior stereotactic biopsy of left breast calcifications. No residual calcifications are seen. No new mass is identified. There are benign calcifications. The axillae are unremarkable. IMPRESSION: No mammographic features suspicious for malignancy are identified. ACR BI-RADS Category 2: Benign findings. Result letter will be mailed to the patient. Note: At least 10% of breast cancer is not imaged by mammography. Dictated by: Dictated on workstation # [id number]
== END ==
LOC: RAD 10:23
PROVIDERS: ATTEND Nurse Practitioner Family
DX: Z12.31 Encounter for screening mammogram for malignant neoplasm of breast (principal)
CPT/HCPCS: 77067

== ENCOUNTER → 2019-05-15 | Outpatient (CLI) | payer BC ==
[~2019-05-15] MED LIST changes: +CYAN-41 PO; -CYAN10006 PO; +RIVA10T PO; -RIVA10TA PO
--- NOTE | 2019-05-15 16:38 | Diagnostic Imaging Report ---
INDICATION: Postmenopausal state, osteopenia. COMPARISON: None available. FINDINGS: AP Spine L1-L4: [BMD (g/cm2): 1.047] [T-Score: -1.3] [Z-Score: 0.1] [BMD Previous: NA] [BMD % Change: NA] LT Hip Neck: [BMD (g/cm2): 0.876] [T-Score: -1.2] [Z-Score: 0.1] LT Hip Total: [BMD (g/cm2):1.030] [T-Score:0.2] [Z-Score: 1.2] [BMD Previous: NA] [BMD % Change: NA] RT Hip Neck: [BMD (g/cm2):0.932] [T-Score:-0.8] [Z-Score:0.5] RT Hip Total: [BMD (g/cm2):1.078] [T-score:0.6] [Z-Score:1.6] [BMD Previous:NA] [BMD % Change:NA] *Indicates significant change from prior examination based on 95% confidence level. World Health Organization criteria for BMD interpretation classify patients as Normal (T-score at or above -1.0), Osteopenic (T-score between -1.0 and -2.5) or Osteoporotic (T-score at or below -2.5). LIMITATIONS AND MODIFICATION: None. FRACTURE RISK (FRAX SCORE): The ten year probability of (%): Major Osteoporotic Fracture: [17] Hip Fracture: [2.6] IMPRESSION: 1. Osteopenia (Low bone mass). 2. Baseline examination. 3. See below National Osteoporosis Foundation guidelines on when to potentially initiate pharmacologic therapy. Based on the National Osteoporosis Foundation Guidelines, pharmacologic treatment should be initiated in any of the following, unless clinical conditions suggest otherwise: * Any patient with prior fragility fracture of the hip or vertebrae. A spine fracture indicates 5X risk for subsequent spine fracture and 2X risk for subsequent hip fracture. * Osteoporosis (T-score <-2.5). * Postmenopausal women and men age 50 and older with low bone mass/osteopenia (T-score between -1.0 and -2.5) by DXA and 10-year major osteoporotic fracture greater than 20% or a 10-year probability of hip fracture greater than 3%. These fracture risks are supplied above in the FRAX score, if applicable. * Clinician judgement and/or patient preferences may indicate treatment for people with 10-year fracture probabilities above or below these levels. Dictated by: Dictated on workstation # [id number]
== END ==
LOC: RAD 13:59
PROVIDERS: ATTEND Nurse Practitioner Family
DX: M85.871 Other specified disorders of bone density and structure, right ankle and foot (principal); Z78.0 Asymptomatic menopausal state; Z90.710 Acquired absence of both cervix and uterus; Z90.722 Acquired absence of ovaries, bilateral; Z90.79 Acquired absence of other genital organ(s)
CPT/HCPCS: 77080

== ENCOUNTER → 2019-06-04 | Outpatient (CLI) | payer BC ==
--- NOTE | 2019-06-04 12:25 | Diagnostic Imaging Report ---
INDICATION: Routine screening. COMPARISON: Comparison is made with prior mammogram from 05/30/2018 and 05/02/2017. 2-D and 3-D bilateral screening mammography was performed. The current study was also evaluated with a Computer Aided Detection (CAD) system. 3-D tomosynthesis was also performed and reviewed. FINDINGS: Scattered fibroglandular densities are identified bilaterally. Benign nodule in outer left breast is stable. There are benign calcifications. Previously noted stereotactic clip posterior left breast is again seen. No spiculated mass or malignant-appearing microcalcifications are identified. Axillae are unremarkable. IMPRESSION: No mammographic features suspicious for malignancy are identified. ACR BI-RADS Category 2: Benign findings. Result letter will be mailed to the patient. Note: At least 10% of breast cancer is not imaged by mammography. Dictated by: Dictated on workstation # [id number]
== END ==
LOC: RAD 10:01
PROVIDERS: ATTEND Nurse Practitioner Family
DX: Z12.31 Encounter for screening mammogram for malignant neoplasm of breast (principal)
CPT/HCPCS: 77067

== ENCOUNTER → 2019-07-02 | Outpatient (CLI) | payer BC ==
--- NOTE | 2019-07-02 13:44 | Diagnostic Imaging Report ---
PROCEDURE: US Thyroid. TECHNIQUE: Multiple real-time grayscale images were obtained of the thyroid in various projections. INDICATION: Thyroid nodule. COMPARISON: None available. FINDINGS: The right lobe of the thyroid gland measures 4.1 x 1.6 x 1.3 cm. The left lobe of the thyroid gland measures 4.4 x 1.1 x 1.5 cm. The thyroid gland maintains a homogeneous echotexture without discrete nodule. No increased vascularity. IMPRESSION: Unremarkable examination. No discrete thyroid nodule. Dictated by: Dictated on workstation # [id number]
== END ==
LOC: RAD 12:12
PROVIDERS: ATTEND Otolaryngology Otolaryngology/Facial Plastic Surgery
DX: E04.2 Nontoxic multinodular goiter (principal)
CPT/HCPCS: 76536

== ENCOUNTER → 2019-07-02 | Outpatient (CLI) | payer BC ==
--- NOTE | 2019-07-02 14:13 | Diagnostic Imaging Report ---
INDICATION: Jaw pain. TECHNIQUE: AP and oblique views of the mandible were obtained. FINDINGS: There is no fracture or dislocation. The patient has had multiple teeth extracted. There is no evidence of an apical abscess. IMPRESSION: Unremarkable mandible. Dictated by: Dictated on workstation # [id number]
--- NOTE | 2019-07-02 14:13 | Diagnostic Imaging Report ---
INDICATION: Right hip pain. FINDINGS: Two views of the right hip show no fracture, dislocation, or other acute abnormalities. IMPRESSION: Unremarkable right hip. Dictated by: Dictated on workstation # [id number]
== END ==
LOC: RAD 12:14
PROVIDERS: ATTEND Nurse Practitioner Family
DX: M25.551 Pain in right hip (principal); R68.84 Jaw pain
CPT/HCPCS: 70110; 73502

== ENCOUNTER → 2020-02-28 | Outpatient (CLI) | payer BC ==
[~2020-02-28] MED LIST changes: -MONT10TA24 PO; +MONT10TA26 PO
== END ==
LOC: RT 12:40
PROVIDERS: ATTEND Nurse Practitioner Family
DX: R91.8 Other nonspecific abnormal finding of lung field (principal)
CPT/HCPCS: 94060; 94726; 94729

== ENCOUNTER → 2020-06-06 | Outpatient (CLI) | payer BC, MEDICARE ==
[~2020-06-06] MED LIST changes: -MONT10TA26 PO; +MONT10TA97 PO; -PANT40TA3 PO; +PANT40TA52 PO
--- NOTE | 2020-06-09 10:18 | Diagnostic Imaging Report ---
INDICATION: Routine screening. Correlation is made with prior mammogram from 06/04/2019 and 05/30/2018. 2-D and 3-D bilateral screening mammography was performed with CAD. Scattered fibroglandular densities are identified bilaterally. Scattered benign calcifications are noted. There is a benign nodule upper outer left breast, stable. No new mass or malignant appearing microcalcifications are seen. Axillae are unremarkable. IMPRESSION: BI-RADS Category 2 No mammographic features suspicious for malignancy are microcalcifications ACR BI-RADS Category 2: Benign findings. Result letter will be mailed to the patient. Note: At least 10% of breast cancer is not imaged by mammography. Dictated by: Dictated on workstation # [id number]
== END ==
LOC: RAD 13:04
PROVIDERS: ATTEND Internal Medicine
DX: Z12.31 Encounter for screening mammogram for malignant neoplasm of breast (principal)
CPT/HCPCS: 77063; 77067

== ENCOUNTER → 2021-06-18 | Outpatient (CLI) | payer MEDICARE ==
[~2021-06-18] MED LIST changes: +MONT-40 PO; -MONT10TA97 PO
--- NOTE | 2021-06-18 14:58 | Diagnostic Imaging Report ---
INDICATION: Routine screening. COMPARISON is made with prior mammograms from 06/06/2020 and 06/04/2019. 2-D and 3-D bilateral screening mammography was performed with CAD. Scattered fibroglandular densities are identified bilaterally. There are scattered benign calcifications in both breasts. Probable intraparenchymal lymph node in the upper outer left breast is stable. No new mass or malignant-appearing microcalcifications are seen. Axillae are unremarkable. IMPRESSION: BI-RADS Category 2 No mammographic features suspicious for malignancy are identified. ACR BI-RADS Category 2: Benign findings. Result letter will be mailed to the patient. Note: At least 10% of breast cancer is not imaged by mammography. Dictated by: Dictated on workstation # [id number]
== END ==
LOC: RAD 13:20
PROVIDERS: ATTEND Internal Medicine
DX: Z12.31 Encounter for screening mammogram for malignant neoplasm of breast (principal)
CPT/HCPCS: 77063; 77067